=== PATIENT | female | born 1960 | race Caucasian/White ===

== ENCOUNTER → 2018-05-11 13:40 | Outpatient (CLI) | payer OTHER, SELFPAY ==
[2018-05-11 16:21] LABS: T3 Total - Triiodothyronine 1.01 ng/mL (0.6-1.81)
[2018-05-11 16:22] LABS: ALB/GLOB Ratio 1.2 RATIO (0.9-2.4); AST(SGOT) 23 U/L (15-37); Alanine Aminotransfer ALT/SGPT 16 U/L (13-56); Albumin, Serum 3.7 g/dL (3.2-5.0); Alkaline Phosphatase 51 U/L (45-117); Anion Gap 7 (5-15); BUN 13 mg/dL (7-18); BUN/Creat Ratio 15.2 RATIO (10-20); Calcium,Total 8.7 mg/dL (8.5-10.1); Chloride 104 mmol/L (98-107); Creatinine, Serum 0.86 mg/dL (0.55-1.02); EST Glomerular Filtration Rate 73 mL/min (>60); Est Glom Filt Rate - Afr Amer 88 mL/min (>60); Globulin 3.2 g/dL (2.2-4.2); Glucose 85 mg/dL (74-106); Protein, Total 6.9 g/dL (6.4-8.2); Sodium Level 139 mmol/L (136-145); T4 Free Direct 0.85 ng/dL (0.76-1.46); Thyroid Stim Hormone (TSH) 0.99 uIU/mL (0.358-3.74)
== END ==
PROVIDERS: Family Provider Family Medicine; PCP Family Medicine; Visit Provider Family Medicine
DX: R53.83 Other fatigue (principal)
CPT/HCPCS: 36415; 80053; 84439; 84443; 84480

== ENCOUNTER → 2018-08-15 10:39 | Outpatient (CLI) | payer OTHER, SELFPAY ==
[2018-08-15 12:21] LABS: Absolute Lymphocyte Count 1.97 X10^3/ul (0.83-4.51); Absolute Neutrophil Count 2.4 X10^3/uL (2.0-7.7); Basophil# 0.03 X10^3/uL; Basophil% 0.6 % (0-1); Eosinophil# 0.32 X10^3/uL; Eosinophils% 6.1 % (0-5); Hematocrit 38.1 % (37-47); Hemoglobin 12.7 g/dl (12.0-15.0); Lymphocyte # 1.97 X10^3/ul (4.0); Lymphocyte % 37.3 % (19-41); Mean Corp Hgb Conc 33.3 g/gl (32-36); Mean Corpuscular Hgb 30.2 pg (27.0-32.0); Mean Corpuscular Volume 90.5 fL (81-99); Monocyte# 0.58 X10^3/uL; Neutrophil # 2.37 X10^3/uL (2.7-7.7); Neutrophil % 44.8 % (47-70); Platelet Count 212 K/mm3 (150-450); RBC Distribution Width CV 12.4 % (11.6-14.6); RBC Distribution Width SD 40.7 fl (35.1-43.9); Red Blood Count 4.21 M/mm3 (4.2-5.4); White Blood Count 5.3 K/mm3 (4.4-11.0)
[2018-08-15 12:43] LABS: POSITIVE COUNT NO; POSITIVE DIFFERENTIAL NO; POSITIVE MORPHOLOGY NO
[2018-08-15 12:47] LABS: ALB/GLOB Ratio 1.2 RATIO (0.9-2.4); AST(SGOT) 17 U/L (15-37); Alanine Aminotransfer ALT/SGPT 17 U/L (13-56); Albumin, Serum 3.7 g/dL (3.2-5.0); Alkaline Phosphatase 53 U/L (45-117); Anion Gap 4 (5-15); BUN 20 mg/dL (7-18); BUN/Creat Ratio 32.5 RATIO (10-20); Calcium,Total 8.6 mg/dL (8.5-10.1); Chloride 105 mmol/L (98-107); Creatinine, Serum 0.62 mg/dL (0.55-1.02); EST Glomerular Filtration Rate 106 mL/min (>60); Est Glom Filt Rate - Afr Amer 128 mL/min (>60); Free T3 2.9 pg/mL (2.18-3.98); Globulin 3.1 g/dL (2.2-4.2); Glucose 102 mg/dL (74-106); Potassium 4.1 mmol/L (3.5-5.1); Protein, Total 6.8 g/dL (6.4-8.2); Sodium Level 138 mmol/L (136-145); T4 Free Direct 0.81 ng/dL (0.76-1.46); Thyroid Stim Hormone (TSH) 0.92 uIU/mL (0.358-3.74)
== END ==
PROVIDERS: PCP Family Medicine; Visit Provider Family Medicine
DX: E03.9 Hypothyroidism, unspecified (principal); R53.83 Other fatigue; R55 Syncope and collapse
CPT/HCPCS: 36415; 80053; 83735; 84439; 84443; 84481; 84484; 85025

== ENCOUNTER → 2018-08-17 13:19 | Outpatient (CLI) | payer OTHER, SELFPAY ==
--- NOTE | 2018-08-17 13:30 | CT_ITS ---
STUDY: CT BRAIN WITH AND WITHOUT CONTRAST REASON FOR EXAM: Female, 57 years old. 3.5 week history of numbness in both hands and feet. RADIATION DOSAGE (If Supplied By Facility): CTDIvol = ( 44.99 ) mGy, DLP = ( 1479.73 ) mGycm TECHNIQUE: Transaxial CT imaging of the brain was performed pre and post contrast administration. The examination was performed with intravenous administration of 100 ml of Isovue 300 contrast material. Individualized dose optimization techniques were used for this CT. COMPARISON: None. FINDINGS: Normal soft tissue structures. Normal calvarium. Normal size ventricles and extra-axial spaces for the patient's age. Normal white matter tracts of the cerebral hemispheres. Normal basal ganglia and thalami. Normal brainstem. Normal cerebellum. There is no intracranial hemorrhage. There are no findings of an acute ischemic infarction. Normal visualized paranasal sinuses. CT/Brain/Head W/WO Contrast IMPRESSION: Normal unenhanced and enhanced CT scan of the brain. Electronically Signed: Tom Nolen MD at 15:45 EST Tel [phone], Service support ,
--- OUTSIDE RECORDS SUMMARY | 2018-10-03 17:18 | XMS RPT_ITS ---
:1960 Author Organization [employer] Name Relationship Address Phone S Unavailable Unavailable Unavailable URIAN, LENO Unavailable [address] + [address] [place] [address] S Unavailable Unavailable Unavailable URIAN, LENO Unavailable [address] + [address] [place] [address] S Unavailable Unavailable Unavailable URIAN, LENO Unavailable [address] + [address] [place] [address] S Unavailable Unavailable Unavailable URIAN, LENO Unavailable [address] + [address] [place] [address] S Unavailable Unavailable Unavailable URIAN, LENO Unavailable [address] + [address] [place] [address] S Unavailable Unavailable Unavailable URIAN, LENO Unavailable [address] + [address] [place] [address] S Unavailable Unavailable Unavailable URIAN, LENO Unavailable [address] + [address] [place] [address] S Unavailable Unavailable Unavailable URIAN, LENO Unavailable [address] + [address] [place] [address] S Unavailable Unavailable Unavailable URIAN, LENO Unavailable [address] + [address] [place] [address] S Unavailable Unavailable Unavailable URIAN, LENO Unavailable [address] + [address] [place] [address] S Unavailable Unavailable Unavailable URIAN, LENO Unavailable [address] + [address] [place] [address] Care Team Providers Name Role Phone LIV LOPEZ (ALLYSSA) Attending Unavailable JESSICA, LIV (CNM) Referring Unavailable JESSICA, LIV (CNM) Referring Unavailable Malys, Windy Attending Unavailable Malys, Windy Referring Unavailable Malys, Windy Primary Care Unavailable Malys, Windy Attending Unavailable Malys, Windy Referring Unavailable Malys, Windy Primary Care Unavailable Kc, Jacky Attending Unavailable Malys, Windy Referring Unavailable Kc, Jacky Attending Unavailable Malys, Windy Primary Care Unavailable Kc, Jacky Referring Unavailable Apollo, Amy Attending Unavailable Apollo, Amy Attending Unavailable DOCTOR, OUT OF TOWN Attending Unavailable Malys, Windy Primary Care Unavailable Malys, Windy Attending Unavailable Malys, Windy Primary Care Unavailable Malys, Windy Attending Unavailable Precious, Sturgis Attending Unavailable Malys, Windy Referring Unavailable Malys, Windy Referring Unavailable Denis, Joseph Attending Unavailable PROBLEMS PROBLEMS DATE TYPE CONDITION / CODE ATTENDING STATUS SOURCE 09/14/2018 Unknown R55 - Syncope and Precious, Sturgis Active [facility] collapse / Community R55(ICD-10) Hospital Repository 09/05/2018 Unknown J02.9 - Acute KcJacky Active [facility] pharyngitis, Community unspecified / Hospital J02.9(ICD-10) Repository 08/27/2018 Unknown R00.2 - Malys, Windy Active [facility] Palpitations / Community R00.2(ICD-10) Hospital Repository 09/19/2018 Unknown R07.9 - Chest Denis Joseph Active [facility] pain, unspecified Community / R07.9(ICD-10) Hospital Repository 09/03/2018 Unknown R42 - Dizziness Malys, Windy Active [facility] and giddiness / Community R42(ICD-10) Hospital Repository 08/16/2018 Unknown R53.83 - Other Malys, Windy Active [facility] fatigue / Community R53.83(ICD-10) Hospital Repository 08/16/2018 Unknown E03.9 - Malys, Windy Active [facility] Hypothyroidism, Community unspecified / Hospital E03.9(ICD-10) Repository 05/31/2009 Active Unspecified lump NA Active [facility] in unspecified [facility] breast / Repository N63.0(ICD-10) PROCEDURES PROCEDURES No Procedure Records FoundRESULTS RESULTS CARDIOLOGY VISIT Observed: 09/14/2018 Status: F Source: [place] REPORT 4:16 PM [facility] REPOSITORY [facility] [address] [place] [address] OFFICE VISIT Date of Service: 09/14/18 MR#: [id number] Acct: [id number] Name: FLOR VICTORAI Rep #: [id number] : 1960 Provider: Mauri Lagn MD Age/Sex: 57/F Location: [facility] Status: Signed HPI HPI Chief Complaint: Initial visit Details: FLOR VICTORIA, is a 57 F who presents to the office today for an initial visit. He is a pleasant lady with no previous cardiac history who had presented with an episode of presyncope. She says that she was at [facility] getting ready to have a massage she got up and then she got mildly dizzy there was no shortness of breath she felt her heart racing and some tingling sensation with woozy vision. She did not lose consciousness and did not fall. She went on to have the massage after the episode. As part of her workup she underwent a stress echocardiogram where she exercised for 7 minutes and 55 seconds with no evidence of ischemia her left ventricular ejection fraction was noted to be normal. She also underwent a 24-hour Holter monitor which demonstrated predominantly sinus rhythm with occasional premature ventricular complexes only noted. And no other arrhythmias were noted her electrolytes were also noted to be normal. She has been started on a beta-tiffany. Her electrocardiogram demonstrates normal sinus rhythm with a rate of 70 bpm no acute changes were noted. Her physical exam today demonstrates clear lung friedman regular rate and rhythm no pedal edema her blood pressure is under excellent control. Intake Vital Signs09/14/18 Height 5 ft 9 in 09/14/18 Weight: 144 lb 09/14/18 Body Mass Index (BMI) 21.2 09/14/18 Blood Pressure 112/76 09/14/18 Respiratory Rate 16 09/14/18 Pulse Rate 74 Intake Visit Reasons: PCP ref'd - SOB, pre-sync, CP, tachy Allergies propoxyphene HCl [From Darvon] Adverse Reaction (Verified 09/14/18 12:52) Other Medications Valacyclovir HCl [Valtrex] 500 mg PO PRN PRN 12/31/15 [History Confirmed 09/14/18] amoxicillin 875 mg-potassium clavulanate 125 mg tablet 1 tab PO Q12H 10 Days #20 tab 09/06/18 [Rx Confirmed 09/14/18] aspirin 81 mg tablet,delayed release 81 mg PO DAILY 09/14/18 [History Confirmed 09/14/18] erythromycin 5 mg/gram (0.5 %) eye ointment OPHTHALMIC 10 Days #3 g 09/14/18 [History Confirmed 09/14/18] metoprolol tartrate 25 mg tablet 12.5 mg PO BID 30 Days #30 tab 09/14/18 [History Confirmed 09/14/18] promethazine 25 mg tablet 25 mg PO Q6H PRN PRN tab 09/14/18 [History] zolpidem 10 mg tablet 10 mg PO PRN PRN 09/14/18 [History Confirmed 09/14/18] PFSH Surgical History H/O unilateral oophorectomy (Resolved) H/O unilateral salpingectomy (Resolved) History of appendectomy (Resolved) Hx of arthroscopy of left knee (Resolved) Family History Daughter Diabetes Social History Smoking Status: Former smoker ROS Const Const: Positive for other; negative for fatigue, weakness, difficulty sleeping, frequent falls, excessive sweating or headache(s) Eyes Eyes: Negative for loss of peripheral vision, transient loss of vision, blurry vision, tunnel vision or double vision ENT ENT: Negative for headache(s), dizziness, Nosebleed/epistaxis or balance problems Cardio Chest Pain: No Palpitations: Yes (tachycardia wake her up. Has palpitations at rest) feels like its: pounding, fast Edema: None Muscle aches with walking: None Resp Respiratory: Positive for SOB with activity (SOB with tachycardia and climbing stairs); negative for SOB at rest, SOB orthopnea\SOB lying down, paroxysmal nocturnal dyspnea or Cough GI GI: Negative nausea, heartburn, black,tarry stools or vomiting : Negative for hematuria Musc Musc: Negative for balance problems, muscle aches/ myalgia, muscle weakness or joint pain Skin Skin: Negative non-healing lesions, unusual bruising or rash Neuro Neuro: Positive for other (C/O lightheadedness, right sided numbness and RLE swelling. ) and syncope (fast palpitations prior to syncopal episode); negative for weakness, frequent falls, headache(s), blurry vision, double vision, dizziness, lightheadedness, orthostatic symptoms, near syncope or lack of coordination Immanuel Hematologic/Lymphatic: Negative for easy bruising or easy bleeding Endo Endo: Negative for fatigue, excessive sweating or increased thirst/drinking Psych Psych: Negative for anxiety or depression Allergy Allergy/Immunology: Negative for hives, Negative for rash Cardiology Exam Const Appearance: cooperative, healthy appearing, well developed, well groomed and no acute distress Nutritional Appearance: well nourished and average body habitus Orientation: alert, awake and oriented x3 Head Head: normal to inspection, normocephalic and atraumatic Ears: hearing grossly normal bilaterally and external ears normal Nose: external nose normal, nasal mucous membranes and turbinates normal, nares normal, septum normal, no nasal discharge Face and Sinus: face symmetric Mouth: oral mucosae normal, tongue normal, oropharynx normal and moist mucous membranes Teeth and gingiva: dentition normal Throat: posterior oropharynx normal, tonsils normal and uvula midline Eyes General: appearance normal, both eyes and all related structures Eyelids: eyelids normal Conjunctivae: conjunctivae normal Pupils: PERRL, normal by confrontation and accommodation normal EOM: EOM intact bilaterally Neck Neck: normal visual inspection, trachea midline and no JVD JVD: +5 Carotids: normal carotid upstroke and bounding pulses Chest Chest inspection: normal inspection of the chest, symmetric chest movement and normal respiratory effort Auscultation: Bilateral: Clear to Auscultation Cardio Palpation: normal PMI Rate: regular rate Rhythm: regular rhythm Heart sounds: S1 normal, S2 normal and normal, physiologic split S2; negative rub, gallop or murmur GI GI: normal to inspection, soft, no hepatosplenomegaly and bowel sounds present Neuro General: alert, awake, oriented x3, no focal sensory deficit, gait normal and moves all extremities Skin Skin: no rashes or lesions noted Extremities Pulses: Normal: Right Femoral Pulse, Left Femoral Pulse, Right Dorsalis Pedis Pulse, Left Dorsalis Pedis Pulse, Right Posterior Tibial Pulse, Left Posterior Tibial Pulse, Right Radial Pulse, Left Radial Pulse Lower Extremity Edema: None: Bilateral Musculoskel Musculoskeletal: No joint tenderness Psych Psychological: normal affect Assessment AND Plan 1. Syncope and collapse R55 Plan She did have a history of presyncope. At this time my recommendation will be for us to continue watchful waiting. Her EKG is normal echocardiogram is normal Holter monitor is normal and she does not appear to have any orthostatic changes and is on no significant medications I recommend discontinuing the beta-tiffany I will see her again in 6 months. She should keep her hydrated status appropriate and if she should have any recurrence she should not hesitate to let me know. Thank you for allowing me to participate in the care of your patient. Please don't hesitate to call if any issues arise Plan Detail Other Medications New: Follow Up 6 Months (coastal tug mate) Coding Level of Care Code Off vis,new,level 4 Diagnoses Syncope and collapse R55 Coding Level of Care Code Off vis,new,level 4 Diagnoses Syncope and collapse R55 Supplemental Info Supplemental Information Diagnostics Stress Echocardiogram 08/25/18 Chest X-Ray 03/12/17 09/14/18 6536 <Electronically signed by Mauri Lang MD> Date Mauri Lang MD Cosigner Signature: Date (if applicable) CC: Windy Salazar Observed: 09/03/2018 Status: F Source: [place] CULTURE, R/O STREP A 2:07 PM [facility] Culture No Group A Beta Streptococcus isolated. * This cultures intended use is to screen for Beta Streptococcus A only. All other pathogens and potential pathogens will not be screened for or reported. If a complete workup of all potential pathogens is indicated an order for a routine throat culture is required. ORGANISM 1: Beta strep non A Amount Growth 2+ Performed By: #### M100.010 #### [facility] [address] 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 Accompanied by: self Is patient in pain?: No Allergies propoxyphene HCl [From Darvon] Adverse Reaction (Verified 05/08/16 11:35) Other Medications Valacyclovir HCl [Valtrex] 500 mg PO PRN PRN 12/31/15 [History Confirmed 05/08/16] Zolpidem Tartrate [Ambien] 10 mg PO PRN PRN 12/31/15 [History Confirmed 05/08/16] Hydrocodone Bitart/Apap 5-325 [Salem 5MG-325MG] 1 - 2 tab PO Q4H PRN PRN #15 tab 05/07/16 [Rx Confirmed 05/08/16] proMETHazine tablet [Phenergan] 25 mg PO Q6H PRN PRN #10 tab 05/08/16 [Rx] PFSH Social History Smoking Status: Former smoker HPI HPI Chief Complaint: Sore throat/ ear pain Details: FLOR VICTORIA, is a 57 F who presents to the office today for since 08/28/2018. She has been gargling with salt water. She states her ears feel full. She denies fevers or chills. ROS Const Constitutional: No chills or fever(s) Eyes Eyes: No change in vision ENT ENT: Positive for sore throat and ear pressure Resp Respiratory: No cough, chest congestion, shortness of breath or wheezing Cardio Cardiology: No chest pain at rest or chest pain with exertion Gastro GI: No abdominal pain, diarrhea, vomiting or nausea/dyspepsia Musc Musculoskeletal: No back pain or abnormal walking Skin Skin: No rash or change in skin color Neuro Neurology: No confusion, abnormal walking or abnormal speech Psych Psychiatric: No confusion Aller/Imm Allergy/Immunologic: No wheezing Exam Const General: healthy appearing, no acute distress Orientation: oriented x3, oriented to person, oriented to place, oriented to time [facility] Head: normocephalic Ears: external ears normal, TM's normal bilaterally, EAC's normal Eyes General: appearance normal, both eyes and all related structures Conjunctivae: conjunctivae normal Sclera: sclerae normal Pupils: PERRL Neck Neck: no lymphadenopathy Thyroid: thyroid normal Chest Chest palpation AND inspection: normal inspection of the chest Resp Effort AND Inspection: normal respiratory effort, no cough, no respiratory distress Auscultation: Bilateral: Clear to Auscultation Cardio Rate: regular rate Rhythm: regular rhythm GI Inspection: normal to inspection Auscultation: normal bowel sounds Palpation: no hepatosplenomegaly, no splenomegaly, no masses Skin General: no pallor Rashes: no rashes Nails: no clubbing Neuro General: oriented x3, gait normal Extrem General: normal to inspection, no pedal edema, no calf tenderness, normal gait, no edema, no cyanosis, no clubbing, no calf tenderness bilaterally, no pedal edema Psych Mood: congruent mood Affect: normal affect Speech and Movement: speech and movement normal Results [facility] Office Rapid Strep A Negative Last Edit by Rima Scott on 09/03/18 12:43 Assessment AND Plan Problems 1. Acute pharyngitis, unspecified J02.9 Plan Patient was instructed to continue salt water gargles and honey and lemon juice as needed. Begin Cepacol's or Chloraseptic spray as needed. Try ibuprofen as needed for pain. The patient was notified that the rapid strep will be sent for a culture she will be notified once the results are available. She is instructed to push fluids. Orders Orders: Coding Level of Care Code Off vis,est,level 3 Diagnoses Acute pharyngitis, unspecified J02.9 09/03/18 6875 <Electronically signed by Jacky FONTENOT> Date Jacky FONTENOT Cosigner Signature: Date (if applicable) CC: STRESS TEST ECHO W/O Observed: 08/26/2018 Status: F Source: [place] CONTRAST 9:51 AM [facility] Cardiovascular Services [address] [address] Stress Test Echo w/o Contrast MR#: [id number] Acct: [id number] Name: FLOR VICTORIA Rep #: [id number] : 1960 57 From: Joseph Barrios MD Primary Care: Windy Salazar DO Status: REG CLI Ordering Dr: Windy Salazar DO Sex: F C Reason For Study: CHEST PAIN/PALPITATIONS Stress Results Protocol: Buck Protocol Maximum Predicted HR: 163 bpm Target HR: 139 bpm % Maximum Predicted HR: 93 % DurationHeart Rate Stage (mm:ss) (bpm) BP Comment BASELINE 65 140/76 STAGE 1 3:00 110 138/70 STAGE 2 3:00 130 152/60 STAGE 3 1:55 151 / BECAME VERY DIZZY, LIGHTHEADED AND PALE RECOVERY 81 120/70 Stress Duration: 7:55 mm:ss Maximum Stress HR: 151 bpm Baseline Echocardiogram Findings The estimated ejection fraction is 65 %. Stress Echo Wall motion Data Resting WM Intermediate WM Stress WM Resting Wall Motion Wall Motion Stress No regional wall motion No regional wall motion abnormalities noted. abnormalities noted. EKG Data Normal intervals are noted. The patient exercised according to the regular Buck protocol for a total duration of 7:55. The maximum heart rate attained was 155 beats per minute. This was 95% of maximum predicted heart rate. The patient exercised into stage 3 of the Buck protocol. During stress, there were no ST or T wave changes noted to suggest ischemia. No clinical angina was noted. Interpretation Summary The estimated ejection fraction is 65 %. Normal, adequate, treadmill echocardiogram. Negative for ischemia by EKG and echocardiographic criteria. No anginal symptoms noted. Average exercise capacity for age. Rare PACs and PVCs at peak exercise. Patient did develop dizziness and lightheadedness at the end of the procedure. Final LVEF is 75%. Test terminated due to attainment of target heart rate, dizziness and lightheadedness. Ordering Physician: Windy Salazar Referring Physician: Windy Salazar Performed By: All Antoine RCS 08/26/18950 Date Joseph Barrios MD CC: Windy Salazar DO Date Dictated: 08/25/18 1248 Date Transcribed: 08/26/18950 Medical Education Coordinator: Signed BRAIN/HEAD W/WO Observed: 08/17/2018 Status: F Source: [place] CONTRAST 1:30 PM [facility] Imaging Services [address] [place] [address] Brain/Head W/WO Contrast MR#: [id number] Acct: [id number] Name: FLOR VICTORIA Rep #: [id number] : 1960 F 57 From: Tom Nolen MD PCP: Windy Salazar DO Status: REG CLI Study: Brain/Head W/WO Contrast Date of Exam: 08/17/18 Exam# [id number] Ordering Dr: Windy Salazar DO STUDY: CT BRAIN WITH AND WITHOUT CONTRAST REASON FOR EXAM: Female, 57 years old. 3.5 week history of numbness in both hands and feet. RADIATION DOSAGE (If Supplied By Facility): CTDIvol = ( 44.99 ) mGy, DLP = ( 1479.73 ) mGycm TECHNIQUE: Transaxial CT imaging of the brain was performed pre and post contrast administration. The examination was performed with intravenous administration of 100 ml of Isovue 300 contrast material. Individualized dose optimization techniques were used for this CT. COMPARISON: None. FINDINGS: Normal soft tissue structures. Normal calvarium. Normal size ventricles and extra-axial spaces for the patient's age. Normal white matter tracts of the cerebral hemispheres. Normal basal ganglia and thalami. Normal brainstem. Normal cerebellum. There is no intracranial hemorrhage. There are no findings of an acute ischemic infarction. Normal visualized paranasal sinuses. CT/Brain/Head W/WO Contrast IMPRESSION: Normal unenhanced and enhanced CT scan of the brain. Electronically Signed: Tom Nolen MD at 15:45 EST Tel [phone], Service support , CC: Windy Salazar DO Medical Education Coordinator: Signed CBC W/DIFF, AUTOMATED Collected: 08/15/2018 Status: F Source: [place] 10:41 AM [facility] TYPE CODE TESTS RESULT OUT OF RANGE REFERENCE UNITS LAB L100.1000 4.4-11.0 K/mm3 Normal WBC 5.3 LAB L100.1200 4.2-5.4 M/mm3 Normal RBC 4.21 LAB L100.1300 12.0-15.0 g/dl Normal HGB 12.7 LAB L100.1400 37-47 % Normal HCT 38.1 LAB L100.1500 81-99 fL Normal MCV 90.5 LAB L100.1600 27.0-32.0 pg Normal MCH 30.2 LAB L100.1700 32-36 g/gl Normal MCHC 33.3 LAB L100.1810 11.6-14.6 % Normal RDW CV 12.4 LAB L100.1820 35.1-43.9 fl Normal RDW SD 40.7 LAB L100.1900 150-450 K/mm3 Normal PLT 212 LAB L100.2000 6.2-12.0 fl Normal MPV 10.0 LAB L100.2100 47-70 % Low NEUT% 44.8 LAB L100.2200 19-41 % Normal LY% 37.3 LAB L100.2300 0-10 % High MONO% 11.0 LAB L100.2400 0-5 % High EO% 6.1 LAB L100.2500 0-1 % Normal BASO% 0.6 LAB L100.2550 0.0-0.9 % Normal IM GRAN % 0.200 Result Comment: IG% - Immature Granulocytes (promyelocytes, myelocytes and metamyelocytes) > 1% indicates that a LEFT SHIFT is Present. LAB L100.2620 2.0-7.7 X10 3/uL Normal Absolute Neut 2.4 LAB L100.2720 0.83-4.51 X10 3/ul Normal Absolute Lymph 1.97 Performed By: #### L100.0100 #### [facility] [address] [place], [address] COMPREHENSIVE METABOLIC Collected: 08/15/2018 Status: F Source: [facility] 10:41 AM [facility] Order Comment: 'TROP' Serial specimen #1, #2, #3, or #4: 1 TYPE CODE TESTS RESULT OUT OF RANGE REFERENCE UNITS LAB L501.0100 74-106 mg/dL Normal GLU 102 Result Comment: Fasting Glucose result from 100 to 125 mg/dL suggests IMPAIRED HOMEOSTASIS per A.D.A. criteria. Please note revised GLUCOSE reference range effective 2017. LAB L501.1000 7-18 mg/dL High BUN 20 LAB L501.1100 0.55-1.02 mg/dL Normal CREAT,SERUM 0.62 Result Comment: The validity of the calculated GFR AND GFRAA in patients over 70 years has not been determined. Clinical correlation is essential. LAB L501.1110 >60 mL/min Normal EST GFR 106 Result Comment: Non- GFR Calc LAB L501.1115 >60 mL/min Normal EST GFR - AA 128 Result Comment: GFR Calc LAB L501.1300 10-20 RATIO High BUN/CRE 32.5 LAB L501.1500 6.4-8.2 g/dL T Normal PROT 6.8 LAB L501.1800 3.2-5.0 g/dL Normal ALB 3.7 LAB L501.1950 2.2-4.2 g/dL Normal GLOB 3.1 LAB L501.2000 0.9-2.4 RATIO Normal A/G 1.2 LAB L501.2200 8.5-10.1 mg/dL CA Normal 8.6 LAB L501.4100 15-37 U/L Normal AST 17 LAB L501.4305 45-117 U/L Normal ALK P 53 LAB L501.4405 13-56 U/L Normal ALT 17 LAB L501.4600 0.20-1.00 mg/dL T Normal BILI 0.40 LAB L501.5300 136-145 mmol/L NA Normal 138 LAB L501.5600 3.5-5.1 mmol/L K Normal 4.1 LAB L501.5900 98-107 mmol/L CL Normal 105 LAB L501.6100 21.0-32.0 mmol/L Normal CO2 29.0 LAB L501.6200 5-15 Low GAP 4 Performed By: #### L500.4050, L501.4010, L501.5200, L501.90656, L501.9520, L506.0400 #### [facility] [address] [place], [place], [address] TROPONIN-I Collected: 08/15/2018 Status: F Source: [place] 10:41 AM [facility] [place] [facility] Order Comment: 'TROP' Serial specimen #1, #2, #3, or #4: 1 TYPE CODE TESTS RESULT OUT OF RANGE REFERENCE UNITS LAB L501.4010 <0.045 ng/mL Normal < 0.015 TROPONIN-I Result Comment: TROPONIN-I EXPECTED VALUES <0.045 Negative 0.045 - 0.590 Consistent with Cardiac Damage > OR = 0.600 Critical Value Not every elevated troponin is indicative of UT. These values should be used with clinical judgement in examining the patient's clinical picture for diagnosis. To establish a diagnosis of UT versus myocardial injury, there must be a demonstrated rise and/or fall in the troponin values, in addition to ischemic symptoms, EKG changes, new regional wall motion abnormality, and/or angiographical evidence. PLEASE NOTE: REFERENCE RANGES EDITED 18 Performed By: #### L500.4050, L501.4010, L501.5200, L501.19239, L501.9520, L506.0400 #### [facility] [address] [place], [place], [address] MAGNESIUM Collected: 08/15/2018 Status: F Source: [place] 10:41 AM [facility] [place] [facility] Order Comment: 'TROP' Serial specimen #1, #2, #3, or #4: 1 TYPE CODE TESTS RESULT OUT OF RANGE REFERENCE UNITS LAB L501.5200 1.6-2.6 mg/dL Normal MG 2.0 Performed By: #### L500.4050, L501.4010, L501.5200, L501.83907, L501.9520, L506.0400 #### [facility] [address] [place], [place], [id number] FREE T3 Collected: 08/15/2018 Status: F Source: [place] 10:41 AM [facility] [place] [facility] Order Comment: 'TROP' Serial specimen #1, #2, #3, or #4: 1 TYPE CODE TESTS RESULT OUT OF RANGE REFERENCE UNITS LAB L501.18854 2.18-3.98 pg/mL Normal FREE T3 2.9 Performed By: #### L500.4050, L501.4010, L501.5200, L501.42664, L501.9520, L506.0400 #### [facility] [address] [place], [place], [id number] THYROID STIM HORMONE Collected: 08/15/2018 Status: F Source: [place] (TSH) 10:41 AM [facility] [place] Order Comment: 'TROP' Serial specimen #1, #2, #3, or #4: 1 TYPE CODE TESTS RESULT OUT OF RANGE REFERENCE UNITS LAB L501.9520 0.358-3.74 uIU/mL Normal TSH 0.92 Performed By: #### L500.4050, L501.4010, L501.5200, L501.01457, L501.9520, L506.0400 #### [facility] [address] [place], [place], [id number] T4 FREE DIRECT Collected: 08/15/2018 Status: F Source: [place] 10:41 AM [facility] [place] Order Comment: 'TROP' Serial specimen #1, #2, #3, or #4: 1 TYPE CODE TESTS RESULT OUT OF RANGE REFERENCE UNITS LAB L506.0400 0.76-1.46 ng/dL Normal T4 FREE 0.81 DIRECT Performed By: #### L500.4050, L501.4010, L501.5200, L501.75415, L501.9520, L506.0400 #### [facility] [address] [place], [place], [address] T3 TOTAL - TRIIODOTHYRONINE Collected: 05/11/2018 Status: F Source: [place] 1:43 PM [facility] [place] TYPE CODE TESTS RESULT OUT OF RANGE REFERENCE UNITS LAB L501.9186 0.6-1.81 ng/mL Normal T3 Total 1.01 Performed By: #### L501.9186 #### [facility] [address] [place], [place], [address] COMPREHENSIVE METABOLIC Collected: 05/11/2018 Status: F Source: [facility] 1:43 PM [facility] [place] TYPE CODE TESTS RESULT OUT OF RANGE REFERENCE UNITS LAB L501.0100 74-106 mg/dL Normal GLU 85 Result Comment: Please note revised GLUCOSE reference range effective 2017. LAB L501.1000 7-18 mg/dL Normal BUN 13 LAB L501.1100 0.55-1.02 mg/dL Normal CREAT,SERUM 0.86 Result Comment: The validity of the calculated GFR AND GFRAA in patients over 70 years has not been determined. Clinical correlation is essential. LAB L501.1110 >60 mL/min Normal EST GFR 73 Result Comment: Non- GFR Calc LAB L501.1115 >60 mL/min Normal EST GFR - AA 88 Result Comment: GFR Calc LAB L501.1300 10-20 RATIO Normal BUN/CRE 15.2 LAB L501.1500 6.4-8.2 g/dL T Normal PROT 6.9 LAB L501.1800 3.2-5.0 g/dL Normal ALB 3.7 LAB L501.1950 2.2-4.2 g/dL Normal GLOB 3.2 LAB L501.2000 0.9-2.4 RATIO Normal A/G 1.2 LAB L501.2200 8.5-10.1 mg/dL CA Normal 8.7 LAB L501.4100 15-37 U/L Normal AST 23 LAB L501.4305 45-117 U/L Normal ALK P 51 LAB L501.4405 13-56 U/L Normal ALT 16 LAB L501.4600 0.20-1.00 mg/dL T Normal BILI 0.30 LAB L501.5300 136-145 mmol/L NA Normal 139 LAB L501.5600 3.5-5.1 mmol/L K Normal 4.0 LAB L501.5900 98-107 mmol/L CL Normal 104 LAB L501.6100 21.0-32.0 mmol/L Normal CO2 28.0 LAB L501.6200 5-15 Normal GAP 7 Performed By: #### L500.4050, L501.9520, L506.0400 #### [facility] [address] [place], [place], [address] THYROID STIM HORMONE Collected: 05/11/2018 Status: F Source: [place] (TSH) 1:43 PM [facility] [place] TYPE CODE TESTS RESULT OUT OF RANGE REFERENCE UNITS LAB L501.9520 0.358-3.74 uIU/mL Normal TSH 0.99 Performed By: #### L500.4050, L501.9520, L506.0400 #### [facility] [address] [place], [address] T4 FREE DIRECT Collected: 05/11/2018 Status: F Source: [place] 1:43 PM [facility] [place] TYPE CODE TESTS RESULT OUT OF RANGE REFERENCE UNITS LAB L506.0400 0.76-1.46 ng/dL Normal T4 FREE 0.85 DIRECT Performed By: #### L500.4050, L501.9520, L506.0400 #### [facility] [address] [place], [place], [address] CNCO Observed: 11/17/2017 Status: COMPLETED Source: [place] 10:55 AM [facility] REPOSITORY HNO ID: [id number] Author: Mammography Coordinator Service: (none) Author Type: Physician Type: Letter Filed: 11/18/2017 11:31 PM Note Text: November 17, 2017 PID: [id number] Flor Victoria [address] [place] [address] Dear Ms. Victoria, We are pleased to inform you that the results of your recent breast imaging exam on 11/17/2017 are normal and we recommend that you return to your annual screening Mammography schedule. Early detection of cancer is very important. We also understand recommendations regarding breast cancer screening are controversial. Please discuss with your primary care provider which strategy is best for you and whether a mammogram is right for you. Your imaging studies and report will be kept on file at [facility] as part of your permanent medical record and are available for your continuing care. Thank you for allowing us to help in meeting your health care needs. Sincerely, Dr. Rabago Interpreting Radiologist [facility] (Return to Annual Mammogram schedule) CNCO Observed: 11/17/2017 Status: COMPLETED Source: [place] 10:55 AM [facility] REPOSITORY HNO ID: [id number] Author: Mammography Coordinator Service: (none) Author Type: Physician Type: Letter Filed: 11/18/2017 11:31 PM Note Text: November 17, 2017 PID: [id number] Flor Victoria [address] [place] [address] Dear Ms. Victoria, We are pleased to inform you that the results of your recent breast imaging exam on 11/17/2017 are normal and we recommend that you return to your annual screening Mammography schedule. Early detection of cancer is very important. We also understand recommendations regarding breast cancer screening are controversial. Please discuss with your primary care provider which strategy is best for you and whether a mammogram is right for you. Your imaging studies and report will be kept on file at [facility] as part of your permanent medical record and are available for your continuing care. Thank you for allowing us to help in meeting your health care needs. Sincerely, Dr. Rabago Interpreting Radiologist [facility] (Return to Annual Mammogram schedule) [facility] US BREAST LTD Observed: 11/17/2017 Status: F Source: [facility] 10:48 AM [facility] [place] REPOSITORY * * *Final Report* * * DATE OF EXAM: Nov 17 2017 10:48AM U 0594 - [facility] US BREAST LTD RT / PROCEDURE REASON: Unspecified lump in unspecified breast * * * * Physician Interpretation * * * * #[id number] - [facility] DIAGNOSTIC ROSMERY BILATERAL DIGITAL DIAGNOSTIC MAMMOGRAM WITH CAD: 11/17/2017 HISTORY: Lump In Right Breast /Bilateral Diagnostic Mammogram/Abnormal Mammogram /Priors available for comparison. RESULT: TECHNIQUE: The study was acquired using full field digital technology and interpreted from soft copy. Current study was also evaluated with a Computer Aided Detection (CAD). Comparison is made to exam dated: 02/19/2015 mammogram - [facility]. There are scattered fibroglandular elements in both breasts. Bilateral breast implants are intact. Implants may obscure breast parenchyma, making mammographic interpretation difficult. No significant masses, calcifications, or other findings are seen in either breast. BENIGN FINDING There is no abnormality seen in the right breast to correspond with the palpable abnormality, however, clinical correlation is recommended. There is no mammographic evidence of malignancy. #[id number] - [facility] US BREAST LTD RT ULTRASOUND OF RIGHT BREAST: 11/17/2017 RESULT: Comparison is made to exam dated: 02/19/2015 mammogram - [facility]. Real-time ultrasound of the right breast was performed. IMPRESSION: NEGATIVE There is no sonographic evidence of malignancy. There is no abnormality seen in the right breast to correspond with the palpable abnormality, however, clinical correlation is recommended. Return to annual mammogram screening schedule is recommended. Norma reid/ashley:11/17/2017 10:55:13 Door Slinger: Fawn GERARDO(Jose)(Adrianna), [facility] letter sent: Return to Annual Mammogram BI-RADS: 2 Benign finding Ultrasound BI-RADS: 1 Negative Medical Education Coordinator: Ashley Transcribe Date/Time: Nov 17 2017 9:47A Dictated by : NORMA RABAGO MD This examination was interpreted and the report reviewed and electronically signed by: NORMA RABAGO MD on Nov 17 2017 10:55AM EST [id number] PROGRESS Observed: 11/17/2017 Status: COMPLETED Source: [place] 10:46 AM [facility] REPOSITORY HNO ID: [id number] Author: Fawn Gerardo Service: (none) Author Type: (none) Type: Progress Notes Filed: 11/17/2017 10:47 AM Note Text: Radiology Service Progress Note PATIENT NAME: Flor Victoria DATE OF SERVICE: November 17, 2017 TIME: 10:46 AM PATIENT IDENTITY VERIFICATION COMPLETED USING TWO (2) METHODS: Patient confirmed name verbally and Date of . PATIENT GENDER DATA: Female. status: : No status: NO. PATIENT RELEVANT IMPLANT DATA REVIEWED: Yes RADIOLOGY DEPARTMENT: [facility] BILATERAL DIAGNOSTIC MAMMOGRAM PERIPHERAL IV DATA: Not applicable SIGNED BY: Fawn Gerardo November 17, 2017 10:46 AM PROGRESS Observed: 11/17/2017 Status: COMPLETED Source: [place] 10:34 AM [facility] REPOSITORY O ID: [id number] Author: Bri Mendez Service: (none) Author Type: (none) Type: Progress Notes Filed: 11/17/2017 10:55 AM Note Text: Radiology Service Progress Note PATIENT NAME: Flor Victoria DATE OF SERVICE: November 17, 2017 TIME: 10:34 AM PATIENT IDENTITY VERIFICATION COMPLETED USING TWO (2) METHODS: Patient confirmed name verbally and Date of . PATIENT GENDER DATA: Female. status: : No status: NO. PATIENT RELEVANT IMPLANT DATA REVIEWED: Yes RADIOLOGY DEPARTMENT: Ultrasound PERIPHERAL IV DATA: Not applicable SIGNED BY: Bri Mendez November 17, 2017 10:34 AM [facility] DIAGNOSTIC ROSMERY Observed: 11/17/2017 Status: F Source: [place] 10:29 AM [facility] REPOSITORY * * *Final Report* * * DATE OF EXAM: Nov 17 2017 10:29AM [facility] 0620 - [facility] DIAGNOSTIC ROSMERY / PROCEDURE REASON: Unspecified lump in unspecified breast * * * * Physician Interpretation * * * * RESULT: #[id number] - [facility] DIAGNOSTIC ROSMERY BILATERAL DIGITAL DIAGNOSTIC MAMMOGRAM WITH CAD: 11/17/2017 HISTORY: Lump In Right Breast /Bilateral Diagnostic Mammogram/Abnormal Mammogram /Priors available for comparison. RESULT: TECHNIQUE: The study was acquired using full field digital technology and interpreted from soft copy. Current study was also evaluated with a Computer Aided Detection (CAD). Comparison is made to exam dated: 02/19/2015 mammogram - [facility]. There are scattered fibroglandular elements in both breasts. Bilateral breast implants are intact. Implants may obscure breast parenchyma, making mammographic interpretation difficult. No significant masses, calcifications, or other findings are seen in either breast. BENIGN FINDING There is no abnormality seen in the right breast to correspond with the palpable abnormality, however, clinical correlation is recommended. There is no mammographic evidence of malignancy. #[id number] - [facility] US BREAST LTD RT ULTRASOUND OF RIGHT BREAST: 11/17/2017 RESULT: Comparison is made to exam dated: 02/19/2015 mammogram - [facility]. Real-time ultrasound of the right breast was performed. IMPRESSION: NEGATIVE There is no sonographic evidence of malignancy. There is no abnormality seen in the right breast to correspond with the palpable abnormality, however, clinical correlation is recommended. Return to annual mammogram screening schedule is recommended. Norma reid/ashley:11/17/2017 10:55:13 Door Slinger: Fawn GERARDO (R)(Adrianna), [facility] letter sent: Return to Annual Mammogram BI-RADS: 2 Benign finding Ultrasound BI-RADS: 1 Negative Medical Education Coordinator: Ashley Transcribe Date/Time: Nov 17 2017 9:47A Dictated by: NORMA RABAGO MD This examination was interpreted and the report reviewed and electronically signed by: NORMA RABAGO MD on Nov 17 2017 10:55AM EST [id number] PROGRESS Observed: 11/05/2017 Status: COMPLETED Source: [place] 9:19 AM [facility] REPOSITORY [facility] ID: [id number] Author: Liv Lopez Service: (none) Author Type: Resource Recovery Specialist Type: Progress Notes Filed: 11/05/2017 6:41 PM Note Text: Flor Victoria is a 57 year old female who presents for problem visit reporting concerns of palpable Rt. Breast Lump for 1 month(s). HPI: Patient reports a history of breast implants that were placed over 10 years ago, patient noted that she fell and her Rt. Breast implant ruptured 08/2016. Patient then had replacement of her implants on 10/20/16. Since new implants were placed, patient has noted area of firmness on top inner and outer Rt. Breast. Patient's breast surgeon believes this is likely scar tissue, but he recommended for her to have a mammogram done. Patient denies pain, denies nipple discharge, denies area or unilateral warmth or erythema. PAST MEDICAL HISTORY Diagnosis Date - Chronic fatigue syndrome - Lyme disease - Other genital herpes PAST SURGICAL HISTORY Procedure Laterality Date - APPENDECTOMY 1976 - ENLARGE BREAST WITH IMPLANT age 31 and41 OUTPATIENT REPLACEMENT - KNEE SCOPE,DIAGNOSTIC 1993 Arthroscopy, knee-right knee - KNEE SCOPE,DIAGNOSTIC 06/23/02 arthroscopy, knee-left - PAST SURGICAL HISTORY OF 12/2012 left knee surgery - REMOVAL OF OVARY(S) 01/2016 left oophrectomy, bilateral salpingectomy FAMILY HISTORY Problem Relation Age of Onset - Thyroid Mother - Ischemic Heart Disease Mother - Diabetes Father - Heart Father [place] - Stroke Father - Breast Cancer Maternal Aunt - Cancer Maternal Aunt ovarian - Diabetes Maternal Grandmother - Diabetes Maternal Grandfather - GI Father ulcer - GI Brother ulcer - GI Brother ulcer Social History Marital status: Spouse name: Leno Years of education: Number of children: 2 Occupational History 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 No current facility-administered medications for this visit. Allergies As of Date: 11/05/2017 Allergen Noted Reaction DARVON [PROPOXYPHENE HCL] 09/16/2005 SEASONAL ALLERGIES 05/20/2009 Fully Assessed 03/06/2017 REVIEW OF SYSTEMS Abdomen: No bloating, early satiety, indigestion, or increased flatulence. No abdominal pain, nausea, vomiting, diarrhea, or constipation. Bladder: No dysuria, gross hematuria, urinary frequency, urinary urgency, or incontinence. Breast: Breast lump(s) noted. Expanded ROS: N/A Allergies and current medication updated:Yes EXAM: BP 128/86 Wt 140 lb (63.5kg) LMP 05/03/2008 GENERAL: pleasant, female in no apparent distress HEENT: Normocephalic, atraumatic, mucus membranes moist and no lesions NECK: Supple, full range of motion, no adenopathy and thyroid normal DERMATOLOGY: Normal, without lesions, non-icteric and non-hirsute BREAST: soft, non-tender, symmetric, no dominant mass, normal nipple-areolar complex, no lymphadenopathy, no nipple discharge, surgical implants noted with Rt. > Lt. In firmness,no demarcated mass with clear borders noted CHEST: Normal inspiratory effort ABDOMEN: soft, non-tender and no masses PELVIC: deferred BIMANUAL: deferred NEURO: alert and oriented x3,exam grossly non-focal EXTREMITIES: normal ASSESSMENT AND PLAN: Encounter Diagnosis ICD-10-CM 1. Lump or mass in breast N63.0 [facility] US BREAST LTD RT 1) Breast self examinations reviewed 2) Diagnostic mammogram with Rt. Breast ultrasound ordered to more fully assess breasts and discern if mass is present in Rt. Breast 3) RTC PRN - request for Valtrex sent to patient's pharmacy for management of recurrent HSV infections Liv Lopez CNM CNOV Observed: 11/05/2017 Status: COMPLETED Source: [place] 9:15 AM [facility] REPOSITORY Office Visit (WOOB) FLOR VICTORIA ([id number]) 1960 F Date Time Provider Department 11/05/17 9:15 AM LIV LOPEZ (ALLYSSA) WOOB During your visit today, we recorded the following information about you: Blood pressure Weight 128/86 63.5 kg Liv Lopez CNM 11/05/2017 6:41 PM Signed Flor Hubernati is a 57 year old female who presents for problem visit reporting concerns of palpable Rt. Breast Lump for 1 month(s). HPI: Patient reports a history of breast implants that were placed over 10 years ago, patient noted that she fell and her Rt. Breast implant ruptured 08/2016. Patient then had replacement of her implants on 10/20/16. Since new implants were placed, patient has noted area of firmness on top inner and outer Rt. Breast. Patient's breast surgeon believes this is likely scar tissue, but he recommended for her to have a mammogram done. Patient denies pain, denies nipple discharge, denies area or unilateral warmth or erythema. PAST MEDICAL HISTORY Diagnosis Date - Chronic fatigue syndrome - Lyme disease - Other genital herpes PAST SURGICAL HISTORY Procedure Laterality Date - APPENDECTOMY 1976 - ENLARGE BREAST WITH IMPLANT age 31 and41 OUTPATIENT REPLACEMENT - KNEE SCOPE,DIAGNOSTIC 1993 Arthroscopy, knee-right knee - KNEE SCOPE,DIAGNOSTIC 06/23/02 arthroscopy, knee-left - PAST SURGICAL HISTORY OF 12/2012 left knee surgery - REMOVAL OF OVARY(S) 01/2016 left oophrectomy, bilateral salpingectomy FAMILY HISTORY Problem Relation Age of Onset - Thyroid Mother - Ischemic Heart Disease Mother - Diabetes Father - Heart Father [place] - Stroke Father - Breast Cancer Maternal Aunt - Cancer Maternal Aunt ovarian - Diabetes Maternal Grandmother - Diabetes Maternal Grandfather - GI Father ulcer - GI Brother ulcer - GI Brother ulcer Social History Marital status: Spouse name: Leno Years of education: Number of children: 2 Occupational History 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 No current facility-administered medications for this visit. Allergies As of Date: 11/05/2017 Allergen Noted Reaction DARVON [PROPOXYPHENE HCL] 09/16/2005 SEASONAL ALLERGIES 05/20/2009 Fully Assessed 03/06/2017 REVIEW OF SYSTEMS Abdomen: No bloating, early satiety, indigestion, or increased flatulence. No abdominal pain, nausea, vomiting, diarrhea, or constipation. Bladder: No dysuria, gross hematuria, urinary frequency, urinary urgency, or incontinence. Breast: Breast lump(s) noted. Expanded ROS: N/A Allergies and current medication updated:Yes EXAM: BP 128/86 Wt 140 lb (63.5kg) LMP 05/03/2008 GENERAL: pleasant, female in no apparent distress HEENT: Normocephalic, atraumatic, mucus membranes moist and no lesions NECK: Supple, full range of motion, no adenopathy and thyroid normal DERMATOLOGY: Normal, without lesions, non-icteric and non-hirsute BREAST: soft, non-tender, symmetric, no dominant mass, normal nipple-areolar complex, no lymphadenopathy, no nipple discharge, surgical implants noted with Rt. ANDgt; Lt. In firmness,no demarcated mass with clear borders noted CHEST: Normal inspiratory effort ABDOMEN: soft, non-tender and no masses PELVIC: deferred BIMANUAL: deferred NEURO: alert and oriented x3,exam grossly non-focal EXTREMITIES: normal ASSESSMENT AND PLAN: Encounter Diagnosis ICD-10-CM 1. Lump or mass in breast N63.0 [facility] DIAGNOSTIC BILAT US BREAST LTD RT 1) Breast self examinations reviewed 2) Diagnostic mammogram with Rt. Breast ultrasound ordered to more fully assess breasts and discern if mass is present in Rt. Breast 3) RTC PRN - request for Valtrex sent to patient's pharmacy for management of recurrent HSV infections Liv Lopez CNM Referring Provider: SELF [[id number]] Allergies As of Date: 11/05/2017 Noted Allergy Reaction DARVON (PROPOXYPHENE HCL) 09/16/2005 Comments: euphoric SEASONAL ALLERGIES 05/20/2009 Date Reviewed: 11/05/2017 Reviewed by: Liv (Allyssa) Jessica - Fully Assessed Primary Visit Diagnosis:Lump or mass in breast [N63.0] Order(s):[facility] DIAGNOSTIC BILAT [8514469] Order #: [id number] FUTURE US BREAST LTD RT [[id number]] Order #: [id number] FUTURE Prescriptions as of 11/05/2017 Sig: X VALACYCLOVIR 500 MG TABLET Take 500 mg by mouth twice da* Medication notes this encounter VALACYCLOVIR 500 MG TABLET >> Liv Lopez CNM 11/05/2017 10:00 AM >> LIV LOPEZ CNM Fri Nov 05, 2017 10:00 AM Received from: External Pharmacy Received Sig: TAKE ONE TABLET BY MOUTH TWICE DAILY FOR FIVE DAYS NEEDED FOR outbreak Problem List As Of Date 11/05/2017 Noted Resolved CHRONIC FATIGUE SYNDROME [R53.82] INVALID FOR* IRRITABLE COLON [K58.9] INVALID FOR* GENITAL HERPES NEC [A60.00] INVALID FOR* Lump or Mass in Breast [N63.0] INVALID FOR* Postmenopausal atrophic vaginitis [N95.2] INVALID FOR* Disposition: Return if symptoms worsen or fail to improve. Follow-up and Disposition History Recorded Encounter Status:Closed by LIV LOPEZ CNM on 11/05/17 CNPN Observed: 11/05/2017 Status: COMPLETED Source: [place] 12:00 AM [facility] REPOSITORY Telephone (WOOB) FLOR VICTORIA ([id number]) 1960 F Date Time Provider Department 11/05/17 LIV LOPEZ) WOOB During your visit today, we recorded the following information about you: Liv Lopez CNM 11/05/2017 6:44 PM Signed Patient contacted provider - whenever diagnostic mammogram with Rt. Breast Ultrasound is completed patient will need to have a copy of the result sent to her breast surgeon Dr. Chris Lakhani at the [facility] in [place], [place]. ALLYSSA Arceo RN 11/08/2017 8:14 AM Signed Diagnostic mammogram scheduled for 11/17/17. See below. Roxana James RN 11/17/2017 11:48 AM Signed Breast imagine results faxed to Dr. Chris Rojas at [phone] Lizzie James RN Allergies As of Date: 11/05/2017 Noted Allergy Reaction DARVON (PROPOXYPHENE HCL) 09/16/2005 Comments: euphoric SEASONAL ALLERGIES 05/20/2009 Date Reviewed: 11/05/2017 Reviewed by: Liv Lopez - Fully Assessed Reason for Visit: Breast Problem [16] Cmt: Forward mammogram to breast surgeon Prescriptions as of 11/05/2017 Sig: VALACYCLOVIR 500 MG TABLET Take 1 tablet by mouth twice * Problem List As Of Date 11/05/2017 Noted Resolved CHRONIC FATIGUE SYNDROME [R53.82] INVALID FOR* IRRITABLE COLON [K58.9] INVALID FOR* GENITAL HERPES NEC [A60.00] INVALID FOR* Lump or Mass in Breast [N63.0] INVALID FOR* Postmenopausal atrophic vaginitis [N95.2] INVALID FOR* Encounter Status:Closed by LIV LOPEZ CNM on 11/05/17 ALLERGIES ALLERGIES DATE TYPE / CODE NAME / CODE REACTION SEVERITY SOURCE 09/14/2018 Drug propoxyphene Other Unknown [place] Allergy/416 HCl/[id number]([facility] [id number]([facility] ED CT) Repository 05/20/2009 Environ/420 SEASONAL ALLERGIES [facility] [id number]([facility] ED CT) Repository 09/16/2005 DRUG PROPOXYPHENE HCL [facility] INGREDI/419 [facility] [id number]([facility] Repository ED CT) ENCOUNTERS ENCOUNTERS ADMIT/DISCHARGE ACCOUNT ADMITTING ENCOUNTER LOCATION SOURCE NUMBER CLASS 09/14/2018/09/14/19 [id number] Ambulatory B[facility]Building:[facility] [place] [facility] Repository 09/13/2018 [id number] Ambulatory [facility] [place] [facility] Repository 09/13/2018 [id number] Ambulatory [facility] [place] [facility] Repository 09/03/2018 [id number] Ambulatory [facility] ing:[employer]SPEC Repository 09/03/2018/09/03/20 [id number] Ambulatory BMSBuilding:B [place] [address] [place].[facility] Repository 08/25/2018 [id number] Ambulatory [facility] Hospital ing:[facility]S Repository 08/25/2018 [id number] Ambulatory BMSBuilding:W [facility] Repository 08/17/2018 [id number] [facility] ing[facility] Repository 08/15/2018 [id number] [facility] ing:[facility] Repository 08/10/2018 [id number] [facility] ing:MASS Repository 05/11/2018 [id number] Ambulatory [facility] Hospital ing:BFHLAB Repository 11/17/2017/11/18/19 [id number] Ambulatory [address] Repository 11/17/2017/11/18/19 [id number] Ambulatory [address] Repository 11/05/2017/11/10/19 [id number] Ambulatory [address] Repository PAYERS PAYERS ENCOUNTER GUARANTOR PAYER SUBSCRIBER SOURCE 09/14/2018 LENO [id number] Primary LENO URIANDOB: [place] [address] Insurance:AULTCAREPol [id number] [facility] [address] [place] [address], icy Number: [facility] [address]Dun: [id number] Repository Date:9813-28-16GV [address]OX () [address] [place] [id number]: 09/14/2018 Secondary NOT GIVENUNK Anali Insurance:SELF PAY [facility] Number: Effective Repository Date:2018-09-12 09/13/2018 LENO [id number] Primary LENO URIANDOB: [place] [address] Insurance:[employer]ULTCAREPol [id number] [facility] [address] [place] [address], icy Number: [facility] [address]Dti: [id number] Repository Date:2754-75-97ES [address]OX () [address] [place] [id number]: 09/13/2018 Secondary NOT GIVENUNK [place] Insurance:SELF PAY Community [facility] Number: Effective Repository Date:2018-09-13 09/13/2018 LENO [id number] Primary LENO URIANDOB: [place] [address] Insurance:AULTCAREPol [id number] [facility] [address] [place] [address], icy Number: [facility] [id number]: [id number] Repository Date:3746-97-23BX [address]OX () [address] [place] [id number]: 09/13/2018 Secondary NOT GIVENUNK Anali Insurance:SELF PAY Community [facility] Number: Effective Repository Date:2018-09-13 09/03/2018 LENO [id number] Primary LENO URIANDOB: [place] [address] Insurance:[employer]TCAREPol [id number] [facility] [address] [place] [address], icy Number: [facility] [id number]: [id number] Repository Date:7169-87-01NB [address] () [address] [address]EY: 09/03/2018 Secondary NOT GIVENUNK Anali Insurance:SELF PAY [facility] Number: Effective Repository Date:2018-09-03 09/03/2018 LENO [id number] Primary LENO URIANDOB: [place] [address] Insurance:[employer]Pol [id number] [facility] [address] [place] [address], icy Number: [facility] [id number]: [id number] Repository Date:9938-44-89RA [address]OX () [address] [place] [phone]: 09/03/2018 Secondary NOT GIVENUNK Anali Insurance:SELF PAY Community [facility] Number: Effective Repository Date:2018-09-03 08/25/2018 LENO [id number] Primary LENO URIANDOB: [place] [address] Insurance:[employer] [id number] [facility] [address] [place] [address], icy Number: [facility] [address]Ona: [id number] Repository Date:6998-10-54MD [address]OX () [address] [place] [id number]: 08/25/2018 Secondary NOT GIVENUNK Anali Insurance:SELF PAY Community [facility] Number: Effective Repository Date:2018-08-16 08/25/2018 LENO [id number] Primary LENO URIANDOB: [place] [address] Insurance:[employer]AREPol [id number] [facility] [address] [place] [address], icy Number: [facility] [address]Vhr: [id number] Repository Date:0165-38-24UT BOX () [address] [place] [id number]: 08/25/2018 Secondary NOT GIVENUNK [place] Insurance:SELF PAY [facility]: Effective Repository Date:2018-08-25 08/17/2018 LENO [id number] Primary LENO URIANDOB: [place] [address] Insurance:AULTCAREPol [id number] Community [address] [place] Number: [facility] [place] [address]Wrd: [id number] Repository Date:4991-42-54FB BOX () [address] [place] [address]DI: 08/17/2018 Secondary NOT GIVENUNK Anali Insurance:SELF PAY [facility] Number: Effective Repository Date:2018-08-16 08/15/2018 Leno UrianPo Primary Leno UrianUNK An[place] [address] [place] [address]Njb: icy Number: [facility] [id number] Repository (HP) Date:7185-29-00FJ [address] [place] [id number]: 08/15/2018 Secondary NOT GIVENUNK Anali Insurance:SELF PAY [facility] Number: Effective Repository Date:2018-08-15 08/10/2018 Leno UrianPo Primary NOT GIVENUNK Anali [address], Insurance:SELF PAY [facility] [place] [address]Iyp: [facility] Number: Effective Repository (HP) Date:2017-04-15 05/11/2018 Leno UrianPo Primary L[place] UrianUNK [place] [address], Insurance:AULTCAREPol [facility] [place] [address]Gmk: icy Number: [facility] [id number] Repository (HP) Date:0952-37-39EQ [address] [place] [phone]: 05/11/2018 Secondary NOT GIVENUNK Anali Insurance:SELF PAY [facility] Number: Effective Repository Date:2018-05-11
== END ==
PROVIDERS: Family Provider Family Medicine; PCP Family Medicine; Referring Provider Family Medicine; Visit Provider Family Medicine
DX: R42 Dizziness and giddiness (principal); H53.8 Other visual disturbances; R51 Headache
CPT/HCPCS: 70470; Q9967

== ENCOUNTER → 2018-08-25 12:15 | Outpatient (CLI) | payer OTHER, SELFPAY ==
--- NOTE | 2018-08-25 12:18 | STE_ITS ---
Reason For Study: CHEST PAIN/PALPITATIONS Stress Results Protocol: Buck Protocol Maximum Predicted HR: 163 bpm Target HR: 139 bpm % Maximum Predicted HR: 93 % DurationHeart Rate Stage (mm:ss) (bpm) BP Comment BASELINE 65 140/76 STAGE 1 3:00 110 138/70 STAGE 2 3:00 130 152/60 STAGE 3 1:55 151 / BECAME VERY DIZZY, LIGHTHEADED AND PALE RECOVERY 81 120/70 Stress Duration: 7:55 mm:ss Maximum Stress HR: 151 bpm Baseline Echocardiogram Findings The estimated ejection fraction is 65 %. Stress Echo Wall motion Data Resting WM Intermediate WM Stress WM Resting Wall Motion Wall Motion Stress No regional wall motion No regional wall motion abnormalities noted. abnormalities noted. EKG Data Normal intervals are noted. The patient exercised according to the regular Buck protocol for a total duration of 7:55. The maximum heart rate attained was 155 beats per minute. This was 95% of maximum predicted heart rate. The patient exercised into stage 3 of the Buck protocol. During stress, there were no ST or T wave changes noted to suggest ischemia. No clinical angina was noted. Interpretation Summary The estimated ejection fraction is 65 %. Normal, adequate, treadmill echocardiogram. Negative for ischemia by EKG and echocardiographic criteria. No anginal symptoms noted. Average exercise capacity for age. Rare PACs and PVCs at peak exercise. Patient did develop dizziness and lightheadedness at the end of the procedure. Final LVEF is 75%. Test terminated due to attainment of target heart rate, dizziness and lightheadedness. Ordering Physician: Windy Salazar Referring Physician: Windy Salazar Performed By: All Antoine RCS
== END ==
PROVIDERS: Family Provider Family Medicine; PCP Family Medicine; Referring Provider Family Medicine; Visit Provider Family Medicine
DX: R00.2 Palpitations (principal); R07.9 Chest pain, unspecified; R53.83 Other fatigue; H53.8 Other visual disturbances; R42 Dizziness and giddiness
CPT/HCPCS: 93017; 93225; 93226; 93350

== ENCOUNTER → 2018-09-03 14:05 | Outpatient (CLI) | payer OTHER, SELFPAY ==
[2018-09-03 12:36] VITALS: BMI 20.7
== END ==
PROVIDERS: Family Provider Family Medicine; PCP Family Medicine; Referring Provider Physician Assistant; Visit Provider Physician Assistant
DX: J02.9 Acute pharyngitis, unspecified (principal)
CPT/HCPCS: 87081

== ENCOUNTER → 2019-04-06 | Outpatient (CLI) | payer OTHER, SELFPAY ==
[2019-03-14 09:53] VITALS: BMI 21.1
== END | disposition home or self-care (01) ==
LOC: BFHLAB 15:51
PROVIDERS: Family Provider Family Medicine; PCP Family Medicine; Visit Provider Family Medicine
DX: J02.9 Acute pharyngitis, unspecified (principal)
CPT/HCPCS: 87070

== ENCOUNTER → 2019-06-19 10:50 | Outpatient (CLI) | payer OTHER, SELFPAY ==
[2019-06-19 10:34] VITALS: BMI 21.9
--- NOTE | 2019-06-19 10:51 | RAD_ITS ---
STUDY: X-RAY - PELVIS AND LEFT HIP REASON FOR EXAM: Female, 58 years old. Pain TECHNIQUE: 3 views of the pelvis and hip. COMPARISON: None. FINDINGS: There is a non-specific bowel gas pattern. Normal visualized soft tissue structures. Normal bilateral iliac wings, sacroiliac joints and visualized sacrum. Normal bilateral superior and inferior pubic rami. Normal pubic symphysis. Normal bilateral ischial tuberosities. Normal visualized femoral head. Normal acetabulum. Normal hip joint. RAD/HIP, UNI W/ Pelvis 2-3 Views IMPRESSION: Normal x-ray examination of the pelvis and hip. Electronically Signed: Jase Paz MD at 22:52 EDT , Service support ,
--- NOTE | 2019-06-19 10:51 | RAD_ITS ---
STUDY: X-RAY - CERVICAL SPINE REASON FOR EXAM: Female, 58 years old. Pain TECHNIQUE: 5 view(s) of the cervical spine were obtained. COMPARISON: None FINDINGS: Normal anterior atlantoaxial articulation. Normal odontoid process. Normal cervical lordosis. Normal vertebral bodies and endplates. Normal disc space heights. Normal visualized intervertebral neuroforamina. The soft tissue structures are unremarkable. RAD/Cerv Spine 4 or 5 Views IMPRESSION: Normal x-ray examination of the visualized cervical spine. Electronically Signed: Samuel Hung, at 19:53 EDT Tel , Service support ,
--- NOTE | 2019-06-19 10:51 | RAD_ITS ---
STUDY: X-RAY - LUMBAR SPINE REASON FOR EXAM: Female, 58 years old. Back pain TECHNIQUE: 5 view(s) of the lumbar spine were obtained. COMPARISON: 27 December 2015 FINDINGS: Normal lumbar lordosis. There is no substantial scoliosis. There is a normal alignment of the vertebrae. Normal vertebral bodies and endplates. Normal disc space heights. Mineralization is decreased The soft tissue structures are unremarkable. RAD/L/S Spine Min 4 Views IMPRESSION: 1. Osteopenia. 2. Otherwise unremarkable lumbar spine. Electronically Signed: Samuel Hung, at 19:59 EDT Tel , Service support ,
== END ==
PROVIDERS: Family Provider Family Medicine; PCP Family Medicine; Referring Provider Physician Assistant; Visit Provider Physician Assistant
DX: M54.2 Cervicalgia (principal); M25.552 Pain in left hip; M54.9 Dorsalgia, unspecified
CPT/HCPCS: 72050; 72110; 73502

== ENCOUNTER 2019-06-27 11:30 | Outpatient (RCR) | payer OTHER, SELFPAY ==
[2019-06-19 10:34] VITALS: BMI 21.9
--- NOTE | 2019-06-20 12:21 | HP.PTEVAL ---
Patient's Visit Information NISREEN VICTORIA is a 58 year old F referred to Physical Therapy by PO Dias with a diagnosis of L piriformis syndrome, minor ITBand syndrome. Date of Evaluation: 06/20/19 Physical Therapist: ALEXA Nettles - Visit Plan Frequency: 2x /Week Duration: 4 Weeks Plan: Sent pt home with piriformis stretches in supine and seated and she will try those for a week. IF pt is no better then look into lumbar spine as source of L hip pain. If pt is better, work on B LE strength and core strength with HEP - Subjective Findings: She had this issue once before and had cortizone shots and it caused calcium deposits in her hip that had to be removed. For the last 7 weeks she has had this pain in the bottom area of her buttocks and goes to her hip area. Sometimes she can not lift her leg to go up a step. When is is bad, she can not get out of bed and takes sleeping pills to sleep. When its bad her the tingles down the L leg and into the toes and also affects her neck and her R fingers. Her hip hurts the worst when she is not using it. 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 Saw the ortho surgeon yesterday... and put her on steroids and wants to do PT and get some relief. SHe feels that her walk is off as well. Chiropractor said to tell you that her hips are not balanced. She reports that she does have some back issues... off and on pain. 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 He took x-rays of neck, back and hip and did not find anything significant. - Pain L hip pain Pain Intensity (Out of 10): 5 back pain Pain Intensity (Out of 10): 3 - Objective Gait: Normal gait pattern. Trunk AROM: flexion 75%, ext 50%, SB B 75%. Pt is able to walk on heels and toes. Patellar DTR's R 1+/3 and L 2+/3. LE MMT: R hip flex 4-/5 and L 4/5, R knee flex 4-/5 and L 4/5, B knee ext 4/5, R hip abd 4-/5 and able to do a full ROM bridge. Pt is very flexible but some tightness in B hamstrings and pain at end range L piriformis stretch. Palpation: tender over the piriformis muscle and some along the IT band on the L. Pt had increase slight pain B with SLUMP test - Goals Goal 1:: I HEP Goal Time Frame: 4-6 Weeks Goal 2:: Decrease R hip pain to 1/10 with walking Goal Time Frame: 4-6 Weeks Goal 3:: Increase LE strength (especially the R) by 1/2 muscle grade ( at the time of eval: LE MMT: R hip flex 4-/5 and L 4/5, R knee flex 4-/5 and L 4/5, B knee ext 4/5, R hip abd 4-/5 and able to do a full ROM bridge) Goal Time Frame: 4-6 Weeks - Rehabilitation Potential Rehabilitation Potential: Good - Anticipated Interventions Patient/Client Instruction: Educate patient on: Condition, Plan of Care For the Purpose of:: To decrease pain, To increase ROM, To improve nutrient delivery to tissue, To improve muscle performance and motor function, To increase tolerance to activity/condition/position, To improve health of tissue, To decrease soft tissue restriction, To increase flexibility/ROM Therapeutic Exercise to Include: Strength training, Flexibilty training, Gait and locomotor training, Passive ROM, Active ROM For the Purpose of:: To increase ROM, To improve nutrient delivery to tissue, To improve muscle performance and motor function, To improve ability to perform ADL's, To improve health of tissue, To decrease soft tissue restriction, To increase flexibility/ROM Manual Therapy Techniques to Include: Functional dry needling, Soft tissue mobilization For the Purpose of:: To improve nutrient delivery to tissue, To improve health of tissue, To decrease soft tissue restriction Thank you for the opportunity to evaluate your patient. For Medicare and Medicare HMO plans, please review the plan of care and approve it. It will need to be FAXED BACK to us at [phone] for Medicare purposes. For Medicare only, by signing this I certify the plan of care. Please let me know if there are questions or concerns regarding this plan of care. Physician Signature: Date:
== END 2019-06-27 19:00 | disposition home or self-care (01) ==
LOC: PT 11:30
PROVIDERS: Family Provider Family Medicine; PCP Family Medicine; Referring Provider Physician Assistant; Visit Provider Physician Assistant
DX: G57.02 Lesion of sciatic nerve, left lower limb (principal); M76.32 Iliotibial band syndrome, left leg
CPT/HCPCS: 97110; 97161

== ENCOUNTER → 2020-03-22 09:01 | Outpatient (CLI) | payer OTHER, SELFPAY ==
[2019-06-19 10:34] VITALS: BMI 21.9
== END ==
PROVIDERS: PCP Family Medicine; Visit Provider Family Medicine
DX: R53.83 Other fatigue (principal); R94.6 Abnormal results of thyroid function studies

== ENCOUNTER → 2020-03-26 10:55 | Outpatient (CLI) | payer OTHER, SELFPAY ==
[2019-06-19 10:34] VITALS: BMI 21.9
[2020-03-26 13:13] LABS: Free T3 2.9 pg/mL (2.18-3.98); T4 Free Direct 0.85 ng/dL (0.76-1.46); Thyroid Stim Hormone (TSH) 1.59 uIU/mL (0.358-3.74)
[2020-03-27 16:09] LABS: Thyroid Peroxidase AB < 9 IU/mL (0-34)
[2020-03-27 19:58] LABS: Thyroglobulin Antibody < 1.0 IU/mL (0.0-0.9)
== END ==
PROVIDERS: PCP Family Medicine; Visit Provider Family Medicine
DX: R53.83 Other fatigue (principal); R94.6 Abnormal results of thyroid function studies
CPT/HCPCS: 36415; 84439; 84443; 84481; 86376; 86800

== ENCOUNTER 2020-05-27 10:00 | Outpatient (RCR) | payer OTHER, SELFPAY ==
[2019-06-19 10:34] VITALS: BMI 21.9
--- NOTE | 2020-05-15 14:41 | HP.PTEVAL ---
Patient's Visit Information NISREEN VICTORIA is a 59 year old F referred to Physical Therapy by Dr. Windy Salazar DO with a diagnosis of back and R shoulder pain. Date of Evaluation: 05/09/20 Physical Therapist: Mekhi Bansal DPT - Visit Plan Frequency: 2x /Week Duration: 4 Weeks Plan: Start with cervical extension progression. Progress scapular and cervcal strengthening as toelraetd. Re educated proper lifting and body mechanics as well. - Subjective Pt. is here today for her initial evaluation with diagnosis of R shoulder and back pain. Pt. reports having pain for ~5 days. 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 Pt. reports difficutly sleeping secondary to increased pain in thoracic spine, neck and R UE. Pt. did have a massge a few days ago which she reports did not help. Pt. has refrained from lifting during the time being due to pain. Pt. reprots mornings are worse, improves a little bit as the day progresses, but by the end of the day her pain is worsening again. Pt. reports no R shoulder/hand muscle weakness. Pt. is hopeful to reduce symptoms in order to get back to all ADls and recreational activities without limitations. - Pain R side of cervical spine Pain Intensity (Out of 10): 7 Pain Intensity Range: 2, 9 R scapular region Pain Intensity (Out of 10): 5 Pain Intensity Range: 2, 7 - Objective POSTURE: Pt. has decent posture in sitting. Pt. does have gaurded posture with her shoulder and thoracic spine. PALPATION: Pt. is very tender along R UT, R levator scap, R mid trap and R thoracic erector spinea. NEURO: pt. has normal DTR of BUEs, Pt. did report slight reduction in sensation to light touch of R lateral forearm and deltoid region. ROM: Cervical spine: flexion nil loss NE, extensin min/mod loss increase NW, SB B min loss increase NW with SB R, rotation R decrease in symptoms nil/min loss, rotation L min loss increase NW. Pt. has full ROM of BUEs without increase in symptoms. MMT: Pt. has symmetrical strength of BUEs, equal room inspector strength as well. - Special Tests C/S Radiculapathy - Left Spurlings: Negative C/S Radiculapathy - Right Spurlings: Positive C/S Radiculapathy - Left Relief test: Negative C/S Radiculapathy - Right Relief test: Positive Cervical Sitting: Protrusion - Mechanical Response: No effect Cervical Sitting: Protrusion - Symptoms During Testing: No effect Cervical Sitting: Protrusion - Symptoms After Testing: No effect Cervical Sitting: Retraction - Mechanical Response: No effect Cervical Sitting: Retraction - Symptoms During Testing: Increases Cervical Sitting: Retraction - Symptoms After Testing: No worse Cervical Sitting: Rotation Right - Mechanical Response: No effect Cervical Sitting: Rotation Right - Symptoms During Testing: Decreases Cervical Sitting: Rotation Right - Symptoms After Testing: No better Cervical Sitting: Rotation Left - Mechanical Response: No effect Cervical Sitting: Rotation Left - Symptoms During Testing: Increases Cervical Sitting: Rotation Left - Symptoms After Testing: No worse Cervical Sitting: Flexion - Mechanical Response: No effect Cervical Sitting: Flexion - Symptoms During Testing: No effect Cervical Sitting: Flexion - Symptoms After Testing: No effect R Shoulder External Rotation Lag Test - RC Tear: Negative R Shoulder Supine Impingement Test - RC Tear: Negative R Shoulder Lift Off Test - Subscapular Tear: Negative R Shoulder Drop Sign - IS Test: Negative R Shoulder Belly Press - SupScap: Negative R Shoulder Neer - Impingement: Negative R Shoulder Mancilla Bhupinder - Impingement: Negative R Shoulder Speeds Test - Labrum/Biceps: Negative - Goals Goal 1:: LTG: Pt. to be I with HEP. Goal Time Frame: 4-6 Weeks Goal 2:: STG: pt. to have full cervical ROM without increase in symptoms. Goal Time Frame: 2-4 Weeks Goal 3:: LTG: Pt. to have decreased pain to 0-2/10 with all ADLs. Goal Time Frame: 4-6 Weeks Goal 4:: STG: PT. to have 2-4/10 pain in cervical spine with all work related activities. Goal Time Frame: 2-4 Weeks Goal 5:: LTG: Pt. demonstrate improved postural strength indicated by increased ability to maintain proper posture throughout therapy session. Goal Time Frame: 4-6 Weeks - Rehabilitation Potential Physical Therapy Diagnosis: Pt. has signs and symptoms consistent with R sided cervical radiculopathy with subsequent muscle guarding. Pt. has cervical spine hypombility and radiating R arm pain. Pt. would benefit from PT to work on above limitations and progressing back to all work related activities. Rehabilitation Potential: Excellent - Anticipated Interventions Patient/Client Instruction: Educate patient on: Condition, Plan of Care, Risk Factors, Benefits of Fitness Program For the Purpose of:: To facilitate caregiver knowledge, To improve self management, To prevent re-injury, To improve ability to perform tasks related to life management, To improve tolerance to ADL's Therapeutic Exercise to Include: Strength training, Power training, Postural training, Flexibilty training, Passive ROM, Active ROM For the Purpose of:: To decrease pain, To decrease swelling/inflammation, To increase ROM, To improve nutrient delivery to tissue, To increase oxygenation perfusion, To improve muscle performance and motor function, To improve ability to perform ADL's, To improve health of tissue, To decrease soft tissue restriction, To increase flexibility/ROM Manual Therapy Techniques to Include: Mobilization, Passive ROM, Functional dry needling, Soft tissue mobilization For the Purpose of:: To decrease pain, To decrease swelling/inflammation, To increase ROM, To improve nutrient delivery to tissue, To increase oxygenation perfusion, To improve muscle performance and motor function Thank you for the opportunity to evaluate your patient. For Medicare and Medicare HMO plans, please review the plan of care and approve it. It will need to be FAXED BACK to us at [phone] for Medicare purposes. For Medicare only, by signing this I certify the plan of care. Please let me know if there are questions or concerns regarding this plan of care. Physician Signature: Date:
== END 2020-05-27 19:00 | disposition home or self-care (01) ==
LOC: PT 10:00
PROVIDERS: PCP Family Medicine; Referring Provider Family Medicine; Visit Provider Family Medicine
DX: M25.511 Pain in right shoulder (principal); M54.9 Dorsalgia, unspecified
CPT/HCPCS: 97110; 97140; 97161

== ENCOUNTER 2020-07-08 14:30 | Emergency (ER) | payer OTHER, SELFPAY ==
[2019-06-19 10:34] VITALS: BMI 21.9
[2020-07-08 14:31] VITALS: BP 119/70; PULSE 77; RESP 16; TEMP 36.1; O2SAT 99; BMI 22.8
[2020-07-08 14:56] VITALS: BMI 22.8
--- NOTE | 2020-07-08 14:56 | EKG12_ITS ---
Test Reason : NEURO Blood Pressure : / mmHG Vent. Rate : 068 BPM Atrial Rate : 068 BPM P-R Int : 172 ms QRS Dur : 082 ms QT Int : 394 ms P-R-T Axes : 035 074 057 degrees QTc Int : 418 ms Normal sinus rhythm Normal ECG Confirmed by YENIFER TUBBS, KEKE ([id number]), image editor KSENIA GORMAN ([id number]) on 07/11/2020 11:31:14 AM Referred By: DADA Confirmed By:KEKE STREET MD
--- NOTE | 2020-07-08 14:56 | CT_ITS ---
STUDY: CTA HEAD AND NECK WITH CONTRAST REASON FOR EXAM: Female, 59 years old. LT FACIAL NUMBNESS WITH FACIAL DROOP X 2 WKS, SLURRED SPEECH RADIATION DOSAGE (If Supplied By Facility): CTDIvol = ( 24.22 ) mGy, DLP = ( 1295.15 ) mGycm TECHNIQUE: CT angiography was performed with a multi-detector CT scanner. Data acquisition was obtained from the skull base through the vertex following intravenous administration of IV 100mL Isovue-370. MIP images were reconstructed from the axial data set. Post-processing of the angiographic images was performed, with multiplanar reformation and 3D reconstruction. Individualized dose optimization techniques were used for this CT. COMPARISON: No relevant priors. FINDINGS: Normal bilateral petrous carotid arteries. Normal right cavernous carotid artery with a normal supraclinoid bifurcation. Normal left cavernous carotid artery with a normal supraclinoid bifurcation. Nonvisualized right A1 segments of the anterior cerebral artery which may be consistent with normal variant. Normal left A1 segments of the anterior cerebral artery. Normal intact anterior communicating artery (ACOM). Normal bilateral A2 segments of the anterior cerebral arteries. Normal right M1 and M2 segments of the middle cerebral arteries, with a normal M1 bifurcation. Normal left M1 and M2 segments of the middle cerebral arteries, with a normal M1 bifurcation. Posterior communicating arteries are not visualized consistent with normal variant). Right vertebral is dominant and normal in caliber. The left vertebral is hypoplastic terminating in PICA. Normal basilar artery with a normal basilar bifurcation. The visualized bilateral superior cerebellar (SCA) arteries are normal. Normal bilateral P1, P2 and visualized P3 segments of the posterior cerebral arteries. There is no demonstrated aneurysm of the [place]. There is no demonstrated abnormality of the visualized brain. AORTIC ARCH: Normal visualized aortic arch. Normal origins of the brachiocephalic, left common carotid, and left subclavian arteries. Aberrant retroesophageal right subclavian artery is noted RIGHT CAROTID ARTERIES: Normal right common carotid artery (CCA). Normal right common carotid bulb. Normal origin of the right internal carotid (ICA) artery without a hemodynamically significant stenosis. Normal visualized cervical portion of the right internal carotid artery. Normal origin of the right external carotid artery (ECA). LEFT CAROTID ARTERIES: Normal left common carotid artery (CCA). Normal left common carotid bulb. Normal origin of the left internal carotid (ICA) artery without a hemodynamically significant stenosis. Normal visualized cervical portion of the left internal carotid artery. Normal origin of the left external carotid artery (ECA). VERTEBRAL ARTERIES: Right vertebral is dominant and normal caliber. Left vertebral is hypoplastic and terminates in PICA. CT/CTA Head AND Neck W/ Contrast IMPRESSION: Normal CTA Head and neck with contrast. Electronically Signed: Jase Paz MD at 16:12 EST , Service support ,
--- NOTE | 2020-07-08 14:59 | ED.RN ---
ear ache, fatigue, runny nose, sore throat recently. estevez intermittently, sinus pressure and drainage down back of throat
--- NOTE | 2020-07-08 15:05 | ED.VIS.GEN ---
History of Present Illness Chief Complaint: Neuro S/Sx Informant: Patient Narrative: Patient is a 59-year-old previously healthy female who presents to the emergency department for left-sided facial droop. Her symptoms have been present over the past 2 weeks. 1 week prior to this she did get Botox injections into her cheeks and forehead bilaterally. She denies ever having this happen before in the past. She followed up with her industrial machine system technician today who referred her to the emergency department as they did not think this was Botox related. She says she did have a slight earache on the left side but this is since resolved. No headache, sore throat. No vision changes. She denies any weakness or loss of sensation in any extremity. She denies any chest pain, shortness of breath or palpitations. No abdominal pain or nausea/vomiting. She states she otherwise feels well and has been running daily with this. Past Medical History - Allergies and Home Meds Allergies/Adverse Reactions: Allergies propoxyphene HCl [From Darvon] Adverse Reaction (Verified 07/08/20 14:31) Other hallucination Primary Care Physician: Windy Salazar DO [Primary Care Provider] - 1 Day Past Medical History: None Surgical History: appendectomy Smoking Status: Never smoker Review of Systems All systems negative except as indicated General: Denies: Chills, Fever, Sweats Eyes: Denies: Visual changes - bilaterally, Diplopia ENT: Reports: Rhinorrhea. Denies: Sore throat Cardiovascular: Denies: Chest pain, Palpitations Respiratory: Denies: Dyspnea, Cough, Dyspnea on exertion Gastrointestinal: Denies: Abdominal pain, Nausea, Vomiting, Diarrhea Genitourinary: Denies: Dysuria, Hematuria, Frequency Musculoskeletal: Denies: Back pain, Extremity Pain Skin: Denies: Rash, Wounds Neurological: Denies: Headache, Weakness, Parasthesia, Numbness Physical Exam Vital Signs/Narrative: Vital Signs Temp Pulse Resp BP Pulse Ox 07/08/20 14:31 97.0 F L 77 16 119/70 99 Inital Vital Signs reviewed: Yes General: Well nourished, Well developed, No Acute Distress Head: Normocephalic, Atraumatic Eyes: Perrl, EOMI ENT: Moist mucous membranes, No rhinorrhea, TM's clear Neck: Supple, Nontender Cardiovascular: Regular rate, Regular rhythm, No murmurs Respiratory: No distress, CTA bilaterally, Chest nontender Abdomen: Soft, Nontender, Nondistended, Normal bowel sounds Back: Nontender, Normal Inspection Extremities: Nontender, No edema Skin: Normal color, No rash Neurological: Alert, Oriented x3, Cranial nerves II-XII grossly intact, Normal Strength, Normal Sensation, Left side facial droop, - - Unable to smile on the left side. With the recent Botox injection she has difficult time raising her eyebrows bilaterally so this is limiting exam. No other focal deficits appreciated. Psychological: Normal affect, Normal Mood Diagnostic/Tx/Re-eval - EKG Initial EKG Interpretation: - - Rate of 68 bpm and normal sinus rhythm. Normal intervals. Normal axis. No ST elevations or depressions appreciated. No T wave abnormalities. - Medical Decision Making Patient presents to the emergency department for left-sided facial droop. On physical exam she is unable to smile on the left side with the corner of her mouth. To evaluate for Damon's palsy did tried to have her raise her eyebrows but she is a difficult time with this bilaterally given the Botox injection. I believe that this is most likely Damon's palsy but given the fact having a limited exam will check CT scan and CT angio. This potentially could also be related to the Botox although her industrial machine system technician told her it most likely was not. Basic lab work did not reveal any acute abnormality. CT scan did not show any evidence of acute stroke or vessel occlusion. She has been stable throughout ED stay. No other focal deficits. I did contact her PCP who is willing to see her as an outpatient. Since she is 2 weeks out we will hold off on any steroids or antiviral medications for Damon's palsy. Low likelihood that this is a stroke as a been going for 2 weeks and not showing any evidence of CT scan changes with no other deficits. This was all made aware to the patient. She understands and is agreeable with this plan. I did discuss strict return precautions including developing any other neurological symptoms. All questions answered. ED Disposition - Plan for ED Patient: Disposition: Home or Assisted Living Diagnosis: Damon's palsy Instructions: ED [place] [facility] Referrals: Windy Salazar DO [Primary Care Provider] - 1 Day
[2020-07-08 15:16] LABS: Absolute Lymphocyte Count 2.33 X10^3/uL (0.83-4.51); Absolute Neutrophil Count 3.5 X10^3/uL (2.0-7.7); Anion Gap 5 (5-15); BUN 10 mg/dL (7-18); BUN/Creat Ratio 13.8 RATIO (10-20); Basophil# 0.05 X10^3/uL; Basophil% 0.7 % (0-1); Chloride 105 mmol/L (98-107); Creatinine, Serum 0.72 mg/dL (0.55-1.02); EST Glomerular Filtration Rate 87 mL/min (>60); Eosinophil# 0.28 X10^3/uL; Eosinophils% 4.2 % (0-5); Est Glom Filt Rate - Afr Amer 106 mL/min (>60); Estimated Creatinine Clearance 84.87 ml/min; Glucose 109 mg/dL (74-106); Hematocrit 40.2 % (37-47); Hemoglobin 13.2 g/dL (12.0-15.0); Lymphocyte # 2.33 X10^3/ul (4.0); Lymphocyte % 34.8 % (19-41); Mean Corp Hgb Conc 32.8 g/dL (32-36); Mean Corpuscular Hgb 29.9 pg (27.0-32.0); Mean Platelet Vol. 9.7 fl (6.2-12.0); Monocyte# 0.56 X10^3/uL; Monocyte% 8.4 % (0-10); NRBC Flagged by Analyzer 0 % (0-5); Neutrophil # 3.45 X10^3/uL (2.7-7.7); Neutrophil % 51.6 % (47-70); Platelet Count 249 K/mm3 (150-450); Potassium 3.6 mmol/L (3.5-5.1); RBC Distribution Width CV 11.9 % (11.6-14.6); Red Blood Count 4.42 M/mm3 (4.2-5.4); Sodium Level 140 mmol/L (136-145); White Blood Count 6.7 K/mm3 (4.4-11.0)
[2020-07-08 17:20] VITALS: BP 118/62; PULSE 67; RESP 16; O2SAT 97
== END 2020-07-08 17:36 | disposition home or self-care (01) ==
PROVIDERS: Emergency Provider Emergency Medicine; PCP Family Medicine
DX: G51.0 Bell's palsy (principal); J34.89 Other specified disorders of nose and nasal sinuses
CPT/HCPCS: 70496; 70498; 80048; 85025; 93005; 99282; Q9967; A4216

== ENCOUNTER → 2020-07-11 09:24 | Outpatient (CLI) | payer OTHER, SELFPAY ==
[2020-07-08 14:56] VITALS: BMI 22.8
[2020-07-11 12:49] LABS: Erythrocyte Sedimentation Rate 10 mm/hr (0-30)
[2020-07-11 13:17] LABS: CRP < 2.90 mg/L (0.0-3.0)
[2020-07-19 04:12] LABS: Lyme IgG P18 Ab Absent (.); Lyme IgG P23 Ab Absent (.); Lyme IgG P28 Ab Absent (.); Lyme IgG P30 Ab Absent (.); Lyme IgG P39 Ab Absent (.); Lyme IgG P41 Ab Absent (.); Lyme IgG P45 Ab Absent (.); Lyme IgG P58 Ab Absent (.); Lyme IgG P66 Ab Absent (.); Lyme IgG P93 Ab Absent (.); Lyme IgM P23 Ab Absent (.); Lyme IgM P39 Ab Absent (.); Lyme IgM P41 Ab Absent (.)
[2020-07-19 08:39] LABS: Lyme IgG WB Interpretation Negative (.); Lyme IgM WB Interpretation Negative (.)
== END ==
PROVIDERS: PCP Family Medicine; Visit Provider Family Medicine
DX: R29.810 Facial weakness (principal)
CPT/HCPCS: 36415; 85652; 86140; 86617

== ENCOUNTER → 2020-09-30 | Outpatient (CLI) | payer OTHER, SELFPAY ==
[2020-09-30 15:04] VITALS: BMI 22.8
[2020-10-04 13:49] LABS: HPV APTIMA, High Risk Negative (Negative)
== END | disposition home or self-care (01) ==
LOC: LABSPEC 16:48
PROVIDERS: PCP Family Medicine; Referring Provider Nurse Practitioner Women's Health; Visit Provider Nurse Practitioner Women's Health
DX: Z12.4 Encounter for screening for malignant neoplasm of cervix (principal)
CPT/HCPCS: 87624; 88175; G0145

== ENCOUNTER → 2020-10-14 09:31 | Outpatient (CLI) | payer OTHER, SELFPAY ==
[2020-09-30 15:04] VITALS: BMI 22.8
--- NOTE | 2020-10-14 09:33 | US_ITS ---
STUDY: ULTRASOUND BREAST - RIGHT REASON FOR EXAM: Female, 60 years old. Lateral breast pain and itchiness. TECHNIQUE: Axial and longitudinal images of the RIGHT breast were performed with a high resolution ultrasound transducer. # OF IMAGES: 37 COMPARISON: Comparison is made with prior mammogram done earlier today. FINDINGS: RIGHT Breast: The lateral aspect of the right breast was examined by ultrasound. No sonographic abnormalities seen. US/Breast Limited Unilateral IMPRESSION: No sonographic abnormality is seen. ASSESSMENT CATEGORY: BIRADS Category 1: Negative. A letter regarding these results will be sent to the patient by the facility within 30 days. Electronically Signed: Tom Nolen MD at 14:53 EST , Service support ,
--- NOTE | 2020-10-14 09:33 | BI_ITS ---
MAMMOGRAPHY - BILATERAL DIAGNOSTIC REASON FOR EXAM: Female, 60 years old. Lateral right breast pain and itchiness. Prior bilateral breast implants. PERTINENT HISTORY: Aunt with breast cancer. TECHNIQUE: Digital bilateral breast sophie (3D mammographic acquisition) in the CC and MLO projections. 2-D mediolateral oblique (MLO) and craniocaudad (CC) views of both breasts were obtained. CAD: Full Field Digital Mammography with Computer Added Detection was performed. COMPARISON: Comparison is made with prior examination dated 11/17/2018. FINDINGS: Breast Composition: The breasts are heterogeneously dense, which may obscure small masses. There are no dominant masses or suspicious calcifications. Bilateral breast implants are seen. There is evidence of inversion of the right nipple. This is unchanged. No other significant abnormalities are identified. There has been no significant change since the prior study. BI/DIAG MAMM W/CAD, BILAT IMPRESSION: Stable bilateral diagnostic mammogram. With the patient''s history of right lateral breast pain and itchiness, correlation with ultrasound is recommended. ASSESSMENT CATEGORY: BIRADS Category 0: Incomplete. Need additional imaging evaluation. A letter regarding these results will be sent to the patient by the facility within 30 days. Approximately 10% of breast cancers are not detected by mammography. A normal mammogram should not delay biopsy of a clinically suspicious abnormality. Electronically Signed: Tom Nolen MD at 11:26 EST , Service support ,
== END ==
PROVIDERS: PCP Family Medicine; Referring Provider Nurse Practitioner Women's Health; Visit Provider Nurse Practitioner Women's Health
DX: N64.4 Mastodynia (principal); N64.59 Other signs and symptoms in breast
CPT/HCPCS: 76642; 77062; 77066; G0279

== ENCOUNTER 2021-11-10 09:22 | Outpatient (CLI) | payer MEDICAID, SELFPAY ==
--- NOTE | 2021-11-10 09:25 | RAD_ITS ---
STUDY: X-RAY - LEFT KNEE REASON FOR EXAM: Female, 61 years old. Knee pain. TECHNIQUE: Focal view(s) of the knee. COMPARISON: None. FINDINGS: Osteopenia. Mild arthrosis of the medial femorotibial compartment. Mild arthrosis of the lateral femorotibial compartment. Mild lateral subluxation and tilt of the patella with mild arthrosis of the patellofemoral compartment. The soft tissue structures are unremarkable. RAD/Knee 4 or More Views IMPRESSION: Osteopenia with mild tricompartmental arthrosis as described. No acute abnormality, chondrocalcinosis, erosive changes or periostitis. Electronically Signed: Jeremy Palafox MD at 9:47 EST ,
== END 2021-11-10 23:59 | disposition home or self-care (01) ==
LOC: MTRAD 09:24
PROVIDERS: PCP Family Medicine
DX: M25.562 Pain in left knee (principal)
CPT/HCPCS: 73564

== ENCOUNTER 2021-11-25 08:30 | Outpatient (RCR) | payer OTHER, SELFPAY ==
--- NOTE | 2021-11-11 14:06 | HP.PTEVAL_ITS ---
Patient's Visit Information NISREEN VICTORIA is a 61 year old F referred to Physical Therapy by PO Hernandez with a diagnosis of L mild OA, LBP, L knee pataller maltracking. Date of Evaluation: 11/11/21 Physical Therapist: ALEXA Nettles - Visit Plan Frequency: 1-2x /Week Duration: 6 Weeks Plan: 1-2X/ week for 4-6 weeks for L hip, knee, and core strength. Idep H&W rountine and HEP routine - Subjective Pt had L knee surgery 3 times. She had a meniscus tear, cleaned up ligaments. She was NWB for 6 weeks. Surgery was done at [facility] and [facility] and then third was at [facility]. Her last surgery was 7 years ago. She did bump her knee on a skid prior to vacation but did not think that it did anything. While on vacation (oct 07 for 2 weeks) she had pain and throbbing lower knee cap and medial side of pain. She is on her feet a lot. By 11:00 on vacation she already did 10,000 steps. At night her knee is just throbbing to the point it wakes her up at night. Pt reports that sitting is wor se. If she sits with leg crossed for 30 min she will get medial knee pain. Going up and down stairs it hurts. Her knee pain has caused her back to hurt and her L hip also aches. She does stretches in the morning. She reports that her back did go out on [place] and it just loosened up. Her knee feels as her other knees have felt in the past. She wears a knee brace. She feel that she has less pain since wearing the brace. wants her to wear the brace all the time. gave no time frame as to how long to wear the brace. Pt wants HEP and H&W gym routine due to high co-pay. - Pain L pain Pain Intensity (Out of 10): 0 Pain Intensity Range: 0 - Objective gait: walks with decreased coordination of the L LE and increased stiff leg walking. normal stride. L knee AROM: 0-141 L knee flexion. R knee AROM: 0- 145 R knee flexion. LE MMT: R hip flex 4/5, L hip abd 4/5, L hip ext 4/5, L knee ext 4/5, L knee flex 4/5. LE MMT: L hip flex 4-/5, L hip abd 4-/5, L hip ext 3+/5, L knee flex 4-/5 and L knee ext 4-/5. + L SLR for L hip pain and - on the R. + Slump test on the L for L hip pain - on the R. Pt has decreased fluid movement on the L with single leg heel raises compared to the R. Stairs: Pt at first ran up and down the stairs. Then had the pt go slow up and down the stairs and she ER her L foot with ascending and descending the stairs. She felt that her L leg was harder to control with normal foot alignment. She visably had increase L QUAD/HS climbing the stairs and decrease eccentric control. Sit to stand: pt likes to use her R leg more than her L... hard for her to shift to use the L - Balance/Special Test Scores Lower Extremity Functional Score: 63 - Goals Goal 1:: I HEP Goal Time Frame: 4-6 Weeks Goal 2:: Be able to go up and down the steps recip without any signs of L LE weakness Goal Time Frame: 6-8 Weeks Goal 3:: Be able to sit to stand and OHS with equal WB between 2 LE Goal Time Frame: 6-8 Weeks - Rehabilitation Potential Rehabilitation Potential: Good - Anticipated Interventions Patient/Client Instruction: Educate patient on: Condition, Plan of Care For the Purpose of:: To decrease pain, To increase ROM, To improve nutrient delivery to tissue, To improve muscle performance and motor function, To improve ability to perform ADL's, To increase tolerance to activity/condition/position, To improve performance and independence with ADL's, To decrease level of supervision to perform tasks, To improve ability of physical actions for home/community/work/leisure, To improve gait and locomotor functions, To improve health of tissue, To decrease soft tissue restriction, To increase flexibility/ROM Therapeutic Exercise to Include: Strength training, Body mechanics, Flexibilty training, Gait and locomotor training, Neuromotor development, Passive ROM, Active ROM, Dynamic Lumbar Stabilization For the Purpose of:: To decrease pain, To increase ROM, To improve nutrient delivery to tissue, To increase oxygenation perfusion, To improve muscle performance and motor function, To improve ability to perform ADL's, To increase tolerance to activity/condition/position, To improve performance and independence with ADL's, To decrease level of supervision to perform tasks, To improve ability of physical actions for home/community/work/leisure, To improve gait and locomotor functions, To improve health of tissue Functional Training to Include: Gait training For the Purpose of:: To improve gait and locomotor functions Thank you for the opportunity to evaluate your patient. For Medicare and Medicare HMO plans, please review the plan of care and approve it. It will need to be FAXED BACK to us at [phone] for Medicare purposes. For Medicare only, by signing this I certify the plan of care. Please let me know if there are questions or concerns regarding this plan of care. Physician Signature: Date:
--- NOTE | 2022-03-31 09:52 | HP.PT.NRP ---
NISREEN VICTORIA was seen in my office for initial evaluation on 11/11/21. The following Plan of Care was established for this patient: Initial Frequency: 1-2x /Week Initial Duration: 6 Weeks Patient/Client Instruction: Educate patient on: Condition, Plan of Care For the Purpose of:: To decrease pain, To increase ROM, To improve nutrient delivery to tissue, To improve muscle performance and motor function, To improve ability to perform ADL's, To increase tolerance to activity/condition/position, To improve performance and independence with ADL's, To decrease level of supervision to perform tasks, To improve ability of physical actions for home/community/work/leisure, To improve gait and locomotor functions, To improve health of tissue, To decrease soft tissue restriction, To increase flexibility/ROM Therapeutic Exercise to Include: Strength training, Body mechanics, Flexibilty training, Gait and locomotor training, Neuromotor development, Passive ROM, Active ROM, Dynamic Lumbar Stabilization For the Purpose of:: To decrease pain, To increase ROM, To improve nutrient delivery to tissue, To increase oxygenation perfusion, To improve muscle performance and motor function, To improve ability to perform ADL's, To increase tolerance to activity/condition/position, To improve performance and independence with ADL's, To decrease level of supervision to perform tasks, To improve ability of physical actions for home/community/work/leisure, To improve gait and locomotor functions, To improve health of tissue Functional Training to Include: Gait training For the Purpose of:: To improve gait and locomotor functions This patient was last seen in our office 11/25/21. Pertinent comments regarding their Physical therapy will appear below: DC PT At this point I will be discontinuing this patient from physical therapy. I would be happy to see this patient again in the future if found appropriate by the physician. Thank you! Janie Omer, ALEXA Balance/Gait/Functional tests - Balance/Special Test Scores Lower Extremity Functional Score: 63
== END 2021-11-25 19:00 | disposition home or self-care (01) ==
LOC: PT 08:30
PROVIDERS: PCP Family Medicine
DX: M17.12 Unilateral primary osteoarthritis, left knee (principal); M54.50 Low back pain, unspecified
CPT/HCPCS: 97110; 97161

== ENCOUNTER → 2023-03-01 | Outpatient (CLI) | payer OTHER, SELFPAY ==
[2023-03-01 15:21] LABS: Absolute Lymphocyte Count 1.98 X10^3/uL (0.83-4.51); Absolute Neutrophil Count 2.4 X10^3/uL (2.0-7.7); Basophil# 0.04 X10^3/uL; Basophil% 0.8 % (0-1); Eosinophil# 0.22 X10^3/uL; Eosinophils% 4.2 % (0-5); Hematocrit 39.4 % (37-47); Hemoglobin 12.9 g/dL (12.0-15.0); Lymphocyte # 1.98 X10^3/ul (0.83-4.51); Lymphocyte % 37.7 % (19-41); Mean Corp Hgb Conc 32.7 g/dL (32-36); Mean Corpuscular Hgb 30.4 pg (27.0-32.0); Mean Corpuscular Volume 92.9 fL (81-99); Mean Platelet Vol. 10.3 fl (6.2-12.0); Monocyte# 0.57 X10^3/uL; Monocyte% 10.9 % (0-10); NRBC Flagged by Analyzer 0 % (0-5); Neutrophil # 2.42 X10^3/uL (2.7-7.7); Platelet Count 271 K/mm3 (150-450); RBC Distribution Width CV 12.3 % (11.6-14.6); RBC Distribution Width SD 41.7 fl (35.1-43.9); Red Blood Count 4.24 M/mm3 (4.2-5.4); White Blood Count 5.3 K/mm3 (4.4-11.0)
[2023-03-01 15:39] LABS: ALB/GLOB Ratio 1.1 RATIO (0.9-2.4); AST(SGOT) 18 U/L (15-37); Alanine Aminotransfer ALT/SGPT 18 U/L (13-56); Albumin, Serum 3.6 g/dL (3.2-5.0); Alkaline Phosphatase 52 U/L (45-117); Anion Gap 5 (5-15); BUN 12 mg/dL (7-18); BUN/Creat Ratio 18.2 RATIO (10-20); Calcium,Total 9.1 mg/dL (8.5-10.1); Chloride 109 mmol/L (98-107); Cholesterol 204 mg/dL (200); Creatinine, Serum 0.66 mg/dL (0.55-1.02); EST Glomerular Filtration Rate 96 mL/min (>60); Est Glom Filt Rate - Afr Amer 116 mL/min (>60); Free T3 2.6 pg/mL (2.18-3.98); Globulin 3.3 g/dL (2.2-4.2); Glucose 85 mg/dL (74-106); High Density Lipoprotein 62 mg/dL; Potassium 4.8 mmol/L (3.5-5.1); Protein, Total 6.9 g/dL (6.4-8.2); Sodium Level 143 mmol/L (136-145); T4 Free Direct 0.86 ng/dL (0.76-1.46); Thyroid Stim Hormone (TSH) 1.09 uIU/mL (0.358-3.74); Triglycerides 99 mg/dL; Very Low Density Lipoprotein 20 mg/dL (5-40)
== END | disposition home or self-care (01) ==
LOC: BFHLAB 11:43
PROVIDERS: PCP Family Medicine; Referring Provider Family Medicine; Visit Provider Family Medicine
DX: E03.9 Hypothyroidism, unspecified (principal); Z51.81 Encounter for therapeutic drug level monitoring
CPT/HCPCS: 36415; 80053; 80061; 84439; 84443; 84481; 85025

== ENCOUNTER → 2023-12-10 | Outpatient (CLI) | payer OTHER, SELFPAY | END | disposition home or self-care (01) | LOC: PSN 08:55 | PROVIDERS: PCP Family Medicine; Referring Provider Family Medicine; Visit Provider Family Medicine | DX: R00.2 Palpitations (principal) | CPT/HCPCS: 93225; 93226 ==

== ENCOUNTER → 2024-03-01 | Outpatient (CLI) | payer OTHER, SELFPAY ==
--- NOTE | 2024-03-01 08:01 | US_ITS ---
INDICATION: LUQ PAIN -- LEFT FLANK PAIN -- INCLUDE PANCREAS EXAMINATION: Ultrasound US Abdomen Limited (left quadrant) TECHNIQUE: Longoria scale and color doppler imaging was performed of the left upper quadrant. COMPARISON: No relevant prior comparison study available FINDINGS: PANCREAS: The pancreas is within normal limits. No ductal dilatation is seen. No discrete masses are identified. LEFT KIDNEY: The left kidney measures 11.4 cm in length and is within normal limits. SPLEEN: Within normal limits. No masses are visualized. No free fluid is visualized. US/Abdomen Limited IMPRESSION: No acute sonographic abnormality is demonstrated in the left upper quadrant. Electronically Signed: Mya Beltran MD at 8:09 EDT ,
--- NOTE | 2024-03-01 08:45 | RAD_ITS ---
INDICATION: LUQ PAIN/FLANK PAIN EXAMINATION/TECHNIQUE: X-RAY - XR Spine Thoracic 3 Views COMPARISON: Chest radiograph dated March 12, 2017 FINDINGS: VERTEBRAE: There is a mild levoscoliosis of the lower thoracic spine. Preserved vertebral body height. No fracture. No spondylolisthesis. Preservation of the normal thoracic kyphosis. No significant facet arthropathy. DISCS: Disc spaces are maintained. INCLUDED CHEST/ABDOMEN: No acute abnormalities. RAD/Thoracic Spine 3 Views IMPRESSION: No evidence of thoracic spinal fracture. Mild levoscoliosis. Electronically Signed: Mya Beltran MD at 10:30 EDT ,
--- NOTE | 2024-03-01 08:50 | RAD_ITS ---
INDICATION: Left upper quadrant PAIN EXAMINATION/TECHNIQUE: X-RAY - XR Chest 2 Views COMPARISON: February 06, 2016, February 10, 2017 and dedicated images of the thoracic spine dated March 01, 2024 FINDINGS: LINES/DEVICES: None. LUNGS: No consolidation, edema or effusion. Within the left lower lung there is an ill-defined focal opacity. MEDIASTINAL AND CARDIOVASCULAR STRUCTURES: Cardiac silhouette not enlarged. Central airways and mediastinal contour are unremarkable. BONES AND SOFT TISSUES: Unremarkable. RAD/Chest PA and Lateral IMPRESSION: Focal ill-defined opacity within the left lower lung, may reflect a confluence of shadows however cannot exclude a pulmonary nodule or focal consolidation, consider chest CT for further characterization or short interval follow-up chest radiograph in 6-8 weeks. Electronically Signed: Mya Beltran MD at 9:05 EDT ,
[2024-03-01 10:00] LABS: Absolute Lymphocyte Count 1.95 X10^3/uL (0.83-4.51); Absolute Neutrophil Count 2.5 X10^3/uL (2.0-7.7); Basophil# 0.04 X10^3/uL; Basophil% 0.7 % (0-1); Eosinophil# 0.28 X10^3/uL; Eosinophils% 5.2 % (0-5); Hematocrit 40.3 % (37-47); Hemoglobin 13.3 g/dL (12.0-15.0); Lymphocyte # 1.95 X10^3/ul (0.83-4.51); Mean Corpuscular Hgb 29.8 pg (27.0-32.0); Mean Corpuscular Volume 90.4 fL (81-99); Mean Platelet Vol. 9.8 fl (6.2-12.0); Monocyte% 11.1 % (0-10); NRBC Flagged by Analyzer 0 % (0-5); Neutrophil # 2.54 X10^3/uL (2.7-7.7); Neutrophil % 46.8 % (47-70); Platelet Count 292 K/mm3 (150-450); RBC Distribution Width CV 12.2 % (11.6-14.6); RBC Distribution Width SD 40.7 fl (35.1-43.9); Red Blood Count 4.46 M/mm3 (4.2-5.4); White Blood Count 5.4 K/mm3 (4.4-11.0)
[2024-03-01 10:21] LABS: ALB/GLOB Ratio 1.1 RATIO (0.9-2.4); AST(SGOT) 12 U/L (15-37); Alanine Aminotransfer ALT/SGPT 14 U/L (13-56); Albumin, Serum 3.7 g/dL (3.2-5.0); Alkaline Phosphatase 52 U/L (45-117); Amylase 65 U/L (25-115); Anion Gap 2 (5-15); BUN 12 mg/dL (7-18); BUN/Creat Ratio 17.1 RATIO (10-20); Calcium,Total 9.1 mg/dL (8.5-10.1); Chloride 107 mmol/L (98-107); EST Glomerular Filtration Rate 89 mL/min (>60); Est Glom Filt Rate - Afr Amer 108 mL/min (>60); Globulin 3.4 g/dL (2.2-4.2); Glucose 95 mg/dL (74-106); Lipase 39 U/L (13-75); Potassium 4.6 mmol/L (3.5-5.1); Protein, Total 7.1 g/dL (6.4-8.2); Sodium Level 139 mmol/L (136-145)
== END | disposition home or self-care (01) ==
PROVIDERS: PCP Family Medicine; Referring Provider Nurse Practitioner Family; Visit Provider Nurse Practitioner Family
DX: R10.12 Left upper quadrant pain (principal); R35.0 Frequency of micturition
CPT/HCPCS: 36415; 71046; 72072; 76705; 80053; 82150; 83690; 85025

== ENCOUNTER → 2024-04-04 | Outpatient (CLI) | payer OTHER, SELFPAY ==
--- NOTE | 2024-04-04 16:22 | MRI_ITS ---
EXAM: MR RIGHT LOWER EXTREMITY WITHOUT INTRAVENOUS CONTRAST, KNEE CLINICAL INDICATION: Pain x 1 month TECHNIQUE: Multiplanar and multisequence MR images of the right knee without intravenous contrast. COMPARISON: March 13, 2024 FINDINGS: BONES/JOINTS: Unremarkable. No fracture. No abnormal bone marrow signal. No synovial hypertrophy. No intra-articular body. EXTENSOR MECHANISM: Unremarkable. MEDIAL MENISCUS: Unremarkable. LATERAL MENISCUS: Unremarkable. MEDIAL CAPSULE/SUPPORTING STRUCTURES: Unremarkable. Intact. LATERAL CAPSULE/SUPPORTING STRUCTURES: Unremarkable. Lateral collateral ligamentous complex, inclusive of the popliteal tendon, are intact. ANTERIOR CRUCIATE LIGAMENT: Unremarkable. Intact. POSTERIOR CRUCIATE LIGAMENT: Unremarkable. Intact. MUSCLES: Unremarkable. CARTILAGE: Unremarkable. Intact. FLUID: Unremarkable. No joint effusion. OTHER SOFT TISSUES: Small Carr''s cyst cyst. MRI/Lower Ext Joint Only (Routine) IMPRESSION: Small Carr''s cyst. Otherwise unremarkable exam. Electronically Signed: Praneeth Leon MD at 22:31 EDT ,
== END | disposition home or self-care (01) ==
PROVIDERS: PCP Family Medicine; Referring Provider Orthopaedic Surgery Sports Medicine; Visit Provider Orthopaedic Surgery Sports Medicine
DX: M25.561 Pain in right knee (principal)
CPT/HCPCS: 73721

== ENCOUNTER → 2025-08-16 | Outpatient (CLI) | payer OTHER, SELFPAY ==
--- NOTE | 2025-08-16 10:35 | MRI_ITS ---
PROCEDURE: BREAST BILATERAL W/O AND W 08/16/2025 REASON FOR EXAM: BREAT CANCER SCREENING 64-year-old female with family history of breast cancer and personal history of dense breast tissue presents for high-risk screening MRI. TECHNIQUE: Procedure Code: [id number] Modality: MR Procedure: BREAST BILATERAL W/O AND W CONTRAST: 12 mL of IV Clariscan COMPARISON: Mammogram and ultrasound 10/14/2020 FINDINGS: TISSUE DENSITY: The breasts are heterogeneously dense, which may obscure small masses. Background Parenchymal Enhancement: Minimal There are bilateral retropectoral breast implants. RIGHT Breast: No suspicious mass or non-mass enhancement. LEFT Breast: No suspicious mass or non-mass enhancement. Other Findings: No suspicious axillary or internal mammary lymph nodes. Visualized portions of the thoracic and abdominal viscera are unremarkable. MRI/Breast Bilateral W/O and W IMPRESSION: There is no MR evidence of malignancy in either breast. OVERALL FINAL ASSESSMENT BI-RADS 1: NEGATIVE RECOMMENDATION: Routine annual follow-up in 1 Year Reading Location: [id number]
== END | disposition home or self-care (01) ==
LOC: OPMRI 10:08
PROVIDERS: PCP Family Medicine; Referring Provider Family Medicine; Visit Provider Family Medicine
DX: Z12.39 Encounter for other screening for malignant neoplasm of breast (principal); R92.343 Mammographic extreme density, bilateral breasts; Z85.3 Personal history of malignant neoplasm of breast
CPT/HCPCS: 77049; A9575; A4216; C8908